=== PATIENT | male | born 1945 | race Caucasian/White ===

== ENCOUNTER 2016-07-18 15:34 | Inpatient (IN) | payer MEDICARE, OTHER ==
[~2016-07-18] VITALS: Ht 177.8 cm; Wt 77.3 kg
[~2016-07-18 15:34] MED LIST: AMIO200T PO; CAR8A PO; DULO30CA50 PO; DULO60CA42 PO; FINA5TAB9 PO; FURO40TA4 PO; METO-272 PO; OLAN5TAB PO; OXYC10TA8 PO; OXYC20TA55 PO; RIVA20TA PO; TRAZ-115 PO
[2016-07-18 15:43] VITALS: BP 105/67; PULSE 120; RESP 25; O2SAT 99
--- NOTE | 2016-07-18 16:02 | ED.REPORT ---
HPI-General Illness Date of Service Jul 18, 2016 ED Provider: Alireza Baron MD The patient is a 71 year old male with history of acute on chronic systolic heart failure, mitral regurgitation, atrial fibrillation with poor rate control on Xarelto, COPD, and hypertension, who was sent to the emergency department by his early childhood education coordinator, Dr. Parnell. The patient was sent to be admitted for decompensated heart failure. The patient was previously on 40 mg Lasix but his PCP took him off this medication about 1.5 weeks ago. He also has a prostate problem and has previously needed a urinary catheter. He removed the catheter about 1 week ago. At this time he complains of shortness of breath, urinary retention, and fluid build up. The shortness of breath has been worsening over the last few weeks. He has needed to sleep in a recliner and has not been able to complete his normal daily activities. His family members report that the patient has gained about 20 pounds in the last 2-3 weeks. Nursing Notes Stated Complaint: SHORTNESS OF BREATH Chief Complaint: General Complaint Nursing Notes Reviewed: Yes Allergies: Coded Allergies: pregabalin (Verified Allergy, Severe, "collapsed", 07/18/16) Scheduled Alfuzosin ER (Uroxatral) 10 Mg Tablet 10 MG PO HS Amitriptyline (Amitriptyline) 50 Mg Tab 50 MG PO HS Duloxetine (Cymbalta) 60 Mg Capsule.dr 60 MG PO HS TAKE WITH 30 MG DULOXETINE (=90 MG TOTAL) Duloxetine (Duloxetine) 30 Mg Capsule.dr 30 MG PO HS TAKE WITH 60 MG DULOXETINE (=90 MG TOTAL) Ipratropium/Albuterol Sulfate (Iprat-Albut 0.5-3(2.5) mg/3 mL Inhalant Soln) 3 Ml Ampul.neb 3 ML IH Q6H Metoprolol Succinate ER (Metoprolol Succinate ER) 50 Mg Tab.er.24h 50 MG PO HS Multivit with Calcium,Iron,Min (Therapeutic M) 1 Each Tablet 1 EACH PO HS Olanzapine (Olanzapine) 10 Mg Tablet 10 MG PO HS Oxycodone ER (Oxycontin) 20 Mg Tab.er.12h 20 MG PO BID Rivaroxaban (Xarelto) 20 Mg Tablet 20 MG PO HS Sennosides (Senna) 8.6 Mg Tablet 17.2 MG PO HS Tamsulosin (Flomax) 0.4 Mg Capsule 0.8 MG PO HS Trazodone (Trazodone) 50 Mg Tablet 150 MG PO HS USE 3 TABLETS OF THE 50 MG TABLETS (PT CANNOT SWALLOW LARGER PILL) Scheduled PRN Albuterol Neb Soln (Albuterol Neb Soln) 2.5 Mg/3 Ml Vial.neb 2.5 MG INHALATION Q4H PRN PRN For Shortness of Breath Docusate Sodium (Diocto) 50 Mg/5 Ml Liquid 50 MG PO HS PRN PRN For Constipation Oxycodone (Roxicodone) 5 Mg Tablet 5 MG PO TID PRN PRN For Pain General Time Seen by MD: 16:00 Chief Complaint Other (shortness of breath) Hx Obtained From: Patient, EMS Arrived By: Ambulance Sudden in Onset?: No Onset Occurred: More than a week ago... 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 Acute on chronic systolic heart failure. 2. Moderate mitral regurgitation. 3. Atrial fibrillation with poor rate control. 4. Chronic obstructive pulmonary disease. 5. Hypertension. 6. Tobacco use. Reports: Atrial fibrillation Past Surgical History None Family History Noncontributory Smoking History Current Every Day Smoker Social History Alcohol Use: Denies alcohol use Drug Use: Denies drug use Other Social History: Good social support, , Local resident Ambulatory Status Independent Review of Systems +urinary retention, weight gain Full Review of Systems Respiratory: Reports: Dyspnea on exertion, Shortness of breath Male: Reports Urinary urgency, Reports Urination decreased Musculoskeletal: Reports: Extremity swelling Complete sys rev & neg: except as marked. Physical Exam Vital Signs Vital Signs Date Time Temp Pulse Resp B/P Pulse Ox O2 Delivery O2 Flow Rate FiO2 07/18/16 15:43 36.5 120 25 105/67 99 Nasal Cannula 2 Initial VS: Reviewed Head / Eyes: Atraumatic, Normocephalic, PERRL ENT: Mucous membranes moist, Conjunctiva normal, No scleral icterus Neck: Supple, Non-tender, Full range of motion Lymphatic: No lymphadenopathy Extremities: Vascular intact, Neuro intact Skin: Warm, Dry, No cyanosis Neurologic: Alert, Oriented, Nonfocal Psychiatric: Mood/affect normal, Behavior normal, Normal thought content General/Constitutional: Awake, Alert, Cooperative Neck: No midline vertebral tend JVD elevated to about 6 cm with the head of the bed at 45 degrees. Respiratory / Chest: No respiratory distress Wheezing / Retractions: Positive: Prolonged exp phase, Wheezing mild (scattered ) Fine bibasilar crackles. Cardiovascular: Heart rate NL, Heart sounds NL, Peripheral circulation NL, Pulses = bilaterally Heart Rate / Rhythm: Positive: Irreg irregular rhythm Abdomen: Atraumatic, Soft, Non-tender, No guarding, No rebound, BS normoactive , No distention Lower Extremity / Pelvis / MS: Neurologic intact, Vascular intact 2+ lower extremity pitting edema extending up into the knees. Interpretation & Diagnostics Lab Results Interpretation Result Diagram: 07/18/16 1548 07/18/16 1548 Test 07/18/16 15:48 07/18/16 17:12 07/18/16 17:30 White Blood Count 4.1th/mm3 (3.8-10.1) Red Blood Count 3.89mil/mm3 (4.40-5.80) Hemoglobin 10.9g/dL (13.8-17.2) Hematocrit 35.1% (41.0-50.0) Mean Corpuscular Volume 90.2fL (81-100) Mean Corpuscular Hemoglobin 28.0pg (27.0-35.0) Mean Corpuscular Hemoglobin Concent 31.1% (32.0-37.0) Red Cell Distribution Width 14.1% (12.3-15.4) Platelet Count 158bil/L (150-400) Neutrophils (%) (Auto) 73.2% (40-74) Lymphocytes (%) (Auto) 14.9% (14-46) Monocytes (%) (Auto) 8.5% (4-12) Eosinophils (%) (Auto) 2.9% (0-5) Basophils (%) (Auto) 0.5% (0-3) Hold Purple Top Tube Received (Received) Prothrombin Time 13.4sec (8.1-12.5) Prothromb Time International Ratio 1.25ratio Hold Blue Top Tube Received (Received) Sodium Level 138mEq/L (134-144) Potassium Level 4.5mEq/L (3.5-5.2) Chloride Level 101mEq/L (97-108) Carbon Dioxide Level 26mmol/L (18-29) Blood Urea Nitrogen 16mg/dL (8-27) Creatinine 1.08mg/dL (0.76-1.27) Estimat Glomerular Filtration Rate 71mL/min (>59) Glucose Level 90mg/dL (60-99) Calcium Level 8.6mg/dL (8.5-10.1) Magnesium Level 2.1mg/dL (1.6-2.6) Total Bilirubin 0.3mg/dL (0.0-1.2) Aspartate Amino Transf (AST/SGOT) 14U/L (0-50) Alanine Aminotransferase (ALT/SGPT) 10U/L (0-44) Alkaline Phosphatase 83U/L (25-160) Troponin T < 0.010ug/L (0.0-0.011) Pro-B-Type Natriuretic Peptide 10652yj/mL (0-376) Total Protein 6.3g/dL (6.4-8.4) Albumin 3.4g/dL (3.4-5.0) Lipase 15U/L (13-60) Hold Red Top Tube Received (Received) Hold [place] Top Tube Received (Received) Lactic Acid Level 1.1mmol/L (0.4-2.0) Hold Urine Received (Received) ECG Interpretation ECG Interpretation: Atrial fibrillation with a rate of [address] elevation of approximately 1 mm in leads V2 and V3 T wave inversions in leads in leads V5 and V6 When compared to prior EKG taken on 04/20/2016 the patient now appears to be in atrial fibrillation when he was previously in ectopic atrial tachycardia. Time: 17:10 Interpreted by: ED physician X-Ray Chest Interpretation Chest Xray Interpretation: IMPRESSION: Mild pulmonary edema. Dictated by: Carlos Castillo RRA Interpreted: Cindy Hills MD on 07/18/2016 at 16:47 Interpretation / Wet Read by: Interpret - Radiologist Re-Eval/Medical Decision Med Decision/Clinical Course The patient is a 71 year old male with history of acute on chronic systolic heart failure, mitral regurgitation, atrial fibrillation with poor rate control on Xarelto, COPD, and hypertension, who was sent to the emergency department by his early childhood education coordinator, Dr. Parnell. Over the last couple weeks he has had a 20 pound weight gain, increasing shortness of breath and has been sleeping upright in his recliner ever since stopping his 40 mg daily Lasix dose. Of note, the patient has also had problems with urinary retention due to enlarged prostate and self discontinued his Michelle catheter recently and has been having difficulty voiding urine. Spoke to Dr. Parnell with cardiology who is requesting the patient be admitted for decompensated heart failure. He will consult. Labs: CBC no leukocytosis, hct 35.1, INR 1.25, CMP unremarkable, troponin negative, BNP 60021, good renal function. Chest x-ray demonstrate mild to moderate pulmonary edema. No evidence of focal pneumonia. Indwelling Michelle catheter was placed. Diuresis was initiated with 80 mg of IV Lasix. Patient remained stable and was continued on telemetry and pulse oximetry. Overall presentation was consistent with acute congestive heart failure exacerbation. I see no significant component of COPD exacerbation based upon my clinical assessment at this point. Overall presentation and convincing for acute pulmonary embolism. I feel the patient warrants admission for further ongoing diuresis and management of his volume status. Discussed with admitting hospitalist transferred in stable condition. Source of Hx: Old records, Private physician Time of Eval: 17:26 Re-Evaluation/Progress Note: Discussed plan for admission with family and the patient. They understand and agree with plan. All questions were addressed. Consultation #1: Referral / Consult Name: Joe Parnell MD Consulted With: Cardiology Call Returned at: 16:04 Note: Will consult. Consultation #2: Referral / Consult Name: Narendra Melchor MD Consulted With: Hospitalist Requested Call at: 17:27 Call Returned at: 18:08 Electronic Field Service Engineer: Will see patient, Agrees with eval, Agrees with plan, Accepts admit Counseled Regarding: Diagnosis, Lab results, Need for admission Discharge & Departure Primary Impression: Congestive heart failure Congestive heart failure type: systolic Congestive heart failure chronicity: acute Qualified Code: I50.21 - Acute systolic (congestive) heart failure Additional Impressions: Atrial fibrillation with rapid ventricular response Pulmonary edema Chronicity: acute Qualified Code: J81.0 - Acute pulmonary edema Shortness of breath Orthopnea Elevated brain natriuretic peptide (BNP) level Acute urinary retention Bladder outlet obstruction Disposition: ADMITTED TO HOSPITAL Discharge Condition All VS Reviewed: Yes Condition: Stable Referrals: Don Ly DO (PCP) Crit Care Except Billable Proc Time Spent: 105-134 minutes Services Performed: Patient management by me, Time spent at bedside, Reviewing test results, Reviewing imaging, Discussing patient care, Documentation in record, Time with fam/surrogate Scribe Attestation Portions of this note were transcribed by Diamond Whitney. I, Dr. Baron personally performed the history, physical exam and medical decision-making; I reviewed and confirmed the accuracy of the information in the transcribed note. Signed by: Santi Woo, 07/18/2016 at 1815. copies to: Don Ly Beck O MD Jul 18, 2016 16:02 Diamond Whitney Jul 18, 2016 16:05
[2016-07-18 16:10] LABS: BASOPHILS % (AUTO) 0.5 % (0-3); EOSINOPHILS % (AUTO) 2.9 % (0-5); MONOCYTES % (AUTO) 8.5 % (4-12); Mean Corpuscular Volume 90.2 fL (81-100); NEUTROPHILS % (AUTO) 73.2 % (40-74); Platelet Count 158 bil/L (150-400)
[2016-07-18 16:16] LABS: INR 1.25 ratio
[2016-07-18 16:26] LABS: TROPONIN T < 0.010 ug/L (0.0-0.011)
[2016-07-18 16:34] LABS: Lipase 15 U/L (13-60); Magnesium 2.1 mg/dL (1.6-2.6)
--- NOTE | 2016-07-18 16:47 | DRSVH ---
PROCEDURE: X-RAY CHEST ONE VIEW, PORTABLE ([id number]) INDICATIONS: chf TECHNIQUE: One view of the chest was acquired. COMPARISON: [facility], CR, XR CHEST 1VW (PORTABLE), 04/20/2016, 17:27. FINDINGS: Surgical changes and devices: None. Lungs and pleura: No pleural effusions or pneumothorax. Interstitium is prominent and mild edema is suspected. Mediastinum: Mediastinal contours appear normal. Heart size is enlarged. Bones and chest wall: No suspicious bony lesions. Overlying soft tissues appear unremarkable. IMPRESSION: Mild pulmonary edema. Dictated by: Carlos Castillo RR Interpreted: Cindy Hills MD on 07/18/2016 at 16:47 Transcribed by: СЕРГЕЙ on 07/18/2016 at 16:47 Approved by: Cindy Hills MD, PhD on 07/18/2016 at 16:49
[2016-07-18] MEDS ORDERED: TAMS0.4C98 PO (17:20)
[2016-07-18] MEDS ORDERED: OLAN10TA19 PO (17:20)
[2016-07-18] MEDS ORDERED: ALBU2.5V4 INHALATION (17:20)
[2016-07-18] MEDS ORDERED: OXYC-474 PO (17:20)
[2016-07-18] MEDS ORDERED: IPRA3AMP IH (17:20)
[2016-07-18] MEDS ORDERED: Furosemide 10 mg/mL 4 mL Inj IVPUSH SCH (17:20)
[2016-07-18] MEDS ORDERED: AMT50T PO (17:20)
[2016-07-18] MEDS ORDERED: ALFU10TA PO (17:26)
[2016-07-18] MEDS ORDERED: RIVA20TA PO (17:46)
[2016-07-18] MEDS ORDERED: MULT-140 PO (17:46)
[2016-07-18] MEDS ORDERED: SENN-133 PO (17:46)
[2016-07-18] MEDS ORDERED: DOCU50LI PO (17:46)
[2016-07-18] MEDS ORDERED: Furosemide 10 mg/mL 4 mL Inj IVPUSH ONE (18:10)
[2016-07-18] MEDS ORDERED: Alum-Mag Hydrox-Simeth 30 mL Suspension PO PRN (18:10)
[2016-07-18] MEDS ORDERED: Ondansetron 2 mg/mL 2 mL Inj IVPUSH PRN (18:10)
[2016-07-18 19:56] VITALS: BP 105/64; PULSE 136; RESP 14; O2SAT 98
[2016-07-18 20:12] VITALS: BP 101/68; PULSE 101; RESP 20; O2SAT 97
[2016-07-18 20:13] VITALS: PULSE 121
[2016-07-18] MEDS ORDERED: MeTOProlol XL 50 mg ER24 Tablet PO SCH (21:00)
--- NOTE | 2016-07-18 21:12 | PCM.HPMED ---
Subjective Date of Service Jul 18, 2016 Primary Provider: Admitting Physician: Narendra Melchor MD Primary Care Physician: Don Ly DO Attending Physician: Narendra Melchor MD Chief Complaint: Shortness of breath , weight gain, LE swelling. History of Present Illness: This is a 71 years old male with a myriad medical issues including refractory atrial fibrillation on Xarelto, chronic systolic heart failure, COPD , hypertension, who presented initially to his licensed loan officer assistant Dr. Parnell send him to [place] for admission. Patient was found to have decompensated heart failure , shortness of breath and uncontrolled heart rate . Patient has stopped taking his medication including his Lasix for near 2 weeks now. He had was as well his Michelle catheter. He is known to have BPH and is under preparation for elective prostatectomy. Patient stated he stopped taking his medication because he is tired of taking too much pills. He had gained approximately 20 pounds since and has been complaining of lower extremity swelling . He has been having worsening shortness of breath on minimal exertion as well. NO chest pain, no fever, no chills,no abdominal pain , no nausea, no vomiting Review of Systems: Review of systems is pertinent for shortness of breath as described in history of present illness otherwise comprehensive review x 10 points is negative Allergies Coded Allergies: pregabalin (Verified Allergy, Severe, "collapsed", 07/18/16) Home Medications Scheduled Alfuzosin ER (Uroxatral) 10 Mg Tablet 10 MG PO HS Amitriptyline (Amitriptyline) 50 Mg Tab 50 MG PO HS Duloxetine (Cymbalta) 60 Mg Capsule. 60 MG PO HS TAKE WITH 30 MG DULOXETINE (=90 MG TOTAL) Duloxetine (Duloxetine) 30 Mg Capsule. 30 MG PO HS TAKE WITH 60 MG DULOXETINE (=90 MG TOTAL) Ipratropium/Albuterol Sulfate (Iprat-Albut 0.5-3(2.5) mg/3 mL Inhalant Soln) 3 Ml Ampul.neb 3 ML IH Q6H Metoprolol Succinate ER (Metoprolol Succinate ER) 50 Mg Tab.er.24h 50 MG PO HS Multivit with Calcium,Iron,Min (Therapeutic M) 1 Each Tablet 1 EACH PO HS Olanzapine (Olanzapine) 10 Mg Tablet 10 MG PO HS Oxycodone ER (Oxycontin) 20 Mg Tab.er.12h 20 MG PO BID Rivaroxaban (Xarelto) 20 Mg Tablet 20 MG PO HS Sennosides (Senna) 8.6 Mg Tablet 17.2 MG PO HS Tamsulosin (Flomax) 0.4 Mg Capsule 0.8 MG PO HS Trazodone (Trazodone) 50 Mg Tablet 150 MG PO HS PMH 1. Acute on chronic systolic heart failure. 2. Moderate mitral regurgitation. 3. Atrial fibrillation with poor rate control. 4. Chronic obstructive pulmonary disease. 5. Hypertension. 6. Tobacco use. Reports: Atrial fibrillation Surgical History None reported Family History Reviewed and is non contributory to the present illness Social History Hx Alcohol Use: No Hx Substance Use: No Smoking Status: Former Smoker Living Arrangement: with Family Exam Vital Signs Vital Sign - Last Date Time Temp Pulse Resp B/P Pulse Ox O2 Delivery O2 Flow Rate FiO2 07/18/16 20:12 36.6 101 20 101/68 97 Nasal Cannula 2.00 Exam General/Constitutional: Elderly male in bed comfortably, no acute distress HEENT : Atraumatic, Normocephalic, PERRL, sclerae is anicteric Mouth: Moist oropharyngeal mucosa Neck: Supple, Non-tender, Full range of motion, no JVD, trachea is midline Lymphatic: No cervical lymphadenopathy. Spleen not palpable Chest : No chest wall deformity, normal respiratory effort Lungs: Bilateral crackles. No wheezing Heart: S1, S2 irregular rate, no gallop Abdomen : Benign. Bowel sounds normal all quadrants Extremities: 3+ edema b/l. No cyanosis, no calf tenderness Skin: Warm, Dry, No cyanosis, no rash, no ulcers Neurologic: Alert, Oriented, grossly Non focal Psychiatric: Mood/affect normal, Behavior normal, Normal thought content Lab and Diagnostics Result Diagram: 07/18/16 1548 07/18/16 1548 X-Rays, CTs and MRIs Check sex are reviewed and show pulmonary edema Assessment & Plan 1. Acute on chronic Systolic heart failure exacerbation 2. Bladder outlet obstruction 3 Pulmonary edema Chronic medical problems 1. Chronic systolic heart failure. 2. Moderate mitral regurgitation. 3. Atrial fibrillation on Xarelto 4. Chronic obstructive pulmonary disease. 5. Hypertension. 6. Tobacco use. Admit as inpatient. Telemetry monitoring Supplemental oxygen at 2 L via nasal cannula for adequate saturation Start furosemide 40 mg IV twice a day. Monitor renal for her electrolytes closely. Daily weight, fluid restriction. Obtain echocardiogram. Insert Michelle catheter for bladder outlet obstruction. Patient is known to have BPH and scheduled for surgery as outpatient. He removed his catheter voluntarily today Medication reviewed and reconciled ( See orders) . Continue Rivaroxaban Afib and stroke prevention. On metoprolol 50 mg twice a day for rete control. HR in the 110-120. BP is in the soft side. PT is SOB at the time of examination and that may be a contributing factor of her uncontrolled HR . Consider Cardizem drip if no improvement with diuretic and Metoprolol. Cardiology following ( Dr. Parnell) . Hospital stay of 2-3 day is anticipated, and recovery is expected Patient is DNR/DNI VTE Prophylaxis: Other (fully anticoagulated with Rivaroxaban ) Resuscitation Status: DNR/DNI:Do Not Resuscitate/Intubate Time spent 75 minutes Narendra Melchor MD Jul 18, 2016 21:12
[2016-07-18 22:14] VITALS: BP 100/70; PULSE 97; RESP 20; O2SAT 98
[2016-07-18] MEDS: DULoxetine 30 mg DR Capsule PO SCH (22:17)
[2016-07-19] VITALS (10 sets, daily range): BP systolic 101–113; BP diastolic 68–79; PULSE 66–118; RESP 18–22; O2SAT 92–99
--- NOTE | 2016-07-19 05:53 | NUR ---
Chest pain Pt having chest pain. Oxicodone administered. MD notified and ordered stat 12 lead EKG and Troponin. After 15 minutes pt reports of chest pain relieved by oxicodone. Denies SOB currently on 2LPM NC saturating 97%. Denies N/V or abdominal discomfort. Will continue to monitor.
[2016-07-19 07:24] LABS: BASOPHILS % (AUTO) 0.7 % (0-3); EOSINOPHILS % (AUTO) 3.3 % (0-5); MONOCYTES % (AUTO) 10.2 % (4-12); Mean Corpuscular Hemoglobin 28.2 pg (27.0-35.0); Mean Corpuscular Volume 88.9 fL (81-100); NEUTROPHILS % (AUTO) 63.7 % (40-74); Platelet Count 153 bil/L (150-400)
[2016-07-19] MEDS: Furosemide 10 mg/mL 4 mL Inj IVPUSH SCH ×2 (07:52→20:33)
[2016-07-19] MEDS: Albuterol 2.5 mg/3 mL Inhalation Solution NEB PRN ×2 (08:26→18:25)
--- NOTE | 2016-07-19 11:11 | DRSVH ---
[facility] [address] [place] [place] [address] Echocardiogram Report Name: KURT GALLO Date: 07/19/2016 Height: 70 in Hospital Exam Location: [facility] Weight: 184 lb Gender: Male BSA: 2.0 m2 : 1945 Age: 71 yrs BP: 107/78 mm Hg Reason For Study: Atrial fibrillation Ordering Physician: Performed By: Lilly Armenta Referring Physician: Dr. Billy Ly Interpretation Summary Underlying atrial fibrillation with rapid ventricular rate. 1. Mild left ventricular enlargement with severe systolic dysfunction. The estimatged ejection fraciton is less than 20%. Poor prognostic features such as less than 160ms deceleration time, elevated filling pressure and mitral regurgitation. 2. Severe left atrial enlargement. 3. Moderate to severe mitral regurgitation. Type I mitral rugurgitation ( Annular dilatation) 4. Mild to moderate tricuspid regurgitation. 5. Small pericardial effusion. Procedure: A two-dimensional transthoracic echocardiogram with color flow and Doppler was performed. The study quality was technically adequate. Comparison is made with the echocardiogram of 07/05/14. The patient was in atrial fibrillation with heart rates between 97-152 bpm during the exam. Left Ventricle: The left ventricle is mildly dilated. There is mild asymmetric left ventricular hypertrophy. The ejection fraction is estimated to be 10-15%. There is severe global hypokinesis of the left ventricle. Diastolic function could not be accurately assessed due to atrial fibrillation. Right Ventricle: The right ventricle is mildly dilated. Right ventricular systolic function is severely reduced. Atria: There is severe biatrial enlargement. The interatrial septum is intact with no evidence for an atrial septal defect. Mitral Valve: The mitral valve leaflets appear borderline thickened, but open well. There is moderate mitral regurgitation. Aortic Valve: The aortic valve is trileaflet. The aortic valve opens well. The aortic valve is slightly calcified. There is trace aortic regurgitation. Tricuspid Valve: There is mild to moderate tricuspid regurgitation. The right ventricular systolic pressure is estimated at 38 mmHg assuming a right atrial pressure of 15 mm Hg. Pulmonic Valve: The pulmonic valve is not well seen, but is grossly normal. There is trace pulmonic regurgitation. Great Vessels: The aortic root is mildly dilated. The aortic arch is normal in size. The ascending aorta is normal in size. The pulmonary artery is not well visualized, but is probably normal size. The IVC is dilated (diameter is greater than 2.1 cm) and it collapses less than 50% with a sniff. This suggests a high right atrial pressure of 15 mm Hg. Pericardium/ Pleura There is a trivial to small pericardial effusion noted. There is no pleural effusion. MMode/2D Measurements & Calculations LVIDd: 6.3 cm LA dimension: 4.9 cm RA long axis Ao root diam LVIDs: 5.6 cm FS: 11.0 % LA A2 area: 36.2 cm RA area Ao Arch Diam (Prox IVSd: 1.1 cm LA A4 area: 34.0 cm Trans): 3.0 cm LVPWd: 0.89 cm LA length (vol) : 28.9 cm RA vol LA vol: 162.4 ml : 112.ml LA vol index RA : 56.0 mm/ RVDd major IVC diam: 3.0 cm : 6.6 cm LV العلي. diameter/BSA LV sys. diameter/BSA RVD1 (basal) RVD2 (mid): 4.4 cm (cm/m^2): 3.1 (cm/m^2): 2.8 Doppler Measurements & Calculations Ao V2 max MV E max paul Med Peak E' Paul TR max paul : 84.4 cm/sec : 102.8 cm/sec : 239.5 cm/sec Ao max PG MV P1/2t: 26.3 msec E/E' med: 24.0 TR max PG : 2.8 mmHg Lat Peak E' Paul : 22.9 mmHg Ao mean PG PA V2 max : 1.5 mmHg E/E' lat: 15.4 : 51.1 cm/sec E/e' average: 19.7 PA mean PG : 0.43 mmHg PA Accel Time : 0.10 sec MV V2 mean MV P1/2t max paul Ao V2 mean PA V2 mean : 62.2 cm/sec : 57.0 cm/sec : 29.7 cm/sec MV mean PG MVA(P1/2t): 8.4 cm2 Ao V2 VTI: 13.8 cm MV V2 VTI : 10.8 cm Electronically signed by: Dr. Joe Parnell on Reading Physician:07/19/2016 11:10 AM
--- NOTE | 2016-07-19 12:02 | NUR ---
Social Work-initial assessment: Data:See initial assessment. Pt is a 71 y/o male who was admitted on 07/18/16 for CHF per H&P. Pt's insurance is [employer] and PCP is Don Ly DO. EMR reviewed. Pt's readmission score is 4-high risk. SW met with pt and Ember at bedside to discuss discharge planning, SW role explained. Pt is alert and oriented x3. Pt resides at home with his in [place] where he remains independent with ADls. Pt drives occasionally and does not use any DME. Pt has no HH or SNF history. Pt uses home O2 through [employer]. Pt has no jail care insurance or VA benefits. SW discussed DPOA/ advanced directive, pt and have completed this a long time ago, but are interested in new paperwork, which SW has provided. Per RN notes, pt has been up independent in his room. Pt and feel like they have enough help at home and decline HH at this time. Pt's to provide transport home at discharge. No anticipated discharge needs. SW will continue to follow if needs arise. Assessment:Pt who is independent at baseline. Plan:Pt to discharge home when medically stable via POV. No anticipated discharge needs. SW will continue to follow if needs arise. TOM Noland Addendum: 07/19/16 at 1216 by DASHAWN MUNOZ SS Amended: Links added.
[2016-07-19] MEDS: oxyCODONE ER 20 mg ER12 Tablet PO SCH ×2 (12:11→20:32)
--- NOTE | 2016-07-19 13:50 | CONS ---
[address] [address] CONSULTATION REPORT PATIENT: KURT GALLO : 1945 MR#: [id number] ADMIT: 07/18/2016 JOB ID: [id number] DATE OF SERVICE: 07/19/2016 CARDIOLOGY CONSULTATION: HISTORY OF PRESENT ILLNESS: The patient is a delightful 71-year-old gentleman who is very well known to my practice who has a history of chronic smoking, atrial fibrillation, moderate mitral regurgitation, LV dysfunction status post ablation for his atrial flutter unsuccessful. The patient has been seeing me in the office. Last visit was in March- March of 2016, to be precise April 25, 2016. The patient was in atrial fibrillation with rate well controlled at 76 beats per minute. Apparently patient has run out of his medications or has not been compliant with the medications. Meanwhile he is having difficulty urination. He was seen by Dr. Avendano as part of the workup for his benign prostate. He was referred to the emergency department for his symptoms of respiratory distress. The patient was having symptoms of shortness of breath, orthopnea, PND, leg swelling and symptoms of fatigue and tiredness. He just did not have much in his body. Therefore, he was referred to the emergency department by a digital forensics investigator at [facility]. The patient was evaluated. I received a phone call and spoke to Dr. Baron and advised him to be admitted to the hospital by the hospitalist service and will consult on him. I saw him again this morning. He reported some improvement in his overall well being. He is not having any significant orthopnea. He has lost about 6-7 pounds since admission and his swelling in the lower extremities is much improved. He is taking his medications. He was started on his routine home medications including metoprolol and rivaroxaban. The patient denied any fever, chills, any cough. He is having his repeat bronchodilators. Denies any GI or symptoms. Patient is catheterized. No neurological deficits reported as well. PAST MEDICAL HISTORY: Is significant for: 1. History of smoking. 2. Hypertension. 3. Moderate mitral regurgitation with myxomatous degeneration. 4. Systolic dysfunction with last reported ejection fraction of 35%. 5. History of ablation for atrial flutter. 6. Tachycardia induced cardiomyopathies. 7. History of thoracic aortic aneurysm. 8. History of smoking. HOME MEDICATIONS: Include: 1. Baby aspirin total 81 mg daily. 2. Xarelto 20 mg daily. 3. Metoprolol succinate 50 mg daily. 4. Trazodone 150 mg daily. 5. OxyContin 20 mg extended release for pain. 6. Olanzapine 10 mg daily. 7. Fluoxetine 60 mg capsule daily. 8. Amitriptyline 10 mg daily. PERSONAL HISTORY: The patient has quit smoking approximately three weeks ago. REVIEW OF SYMPTOMS: Is significant for shortness of breath, orthopnea, PND, history of recurrent wheezing, lower extremity edema, history of urinary retention and hesitation. PHYSICAL EXAMINATION: His blood pressure is 105/80. Pulse is 120, irregularly irregular. His JVD is distended to the earlobes. Respiratory system: The breath sounds are diminished in both lower bases. No active wheezing heard. S1-S2 is irregularly irregular. There is a soft systolic murmur. Abdomen is scaphoid. There is no swelling, no ascites noted. Lower extremities are warm. There is mild pedal edema noted bilaterally. Neurologically, he is grossly intact. He is alert and oriented, not in any distress. No sensory motor deficits noted. LABORATORIES: His labs are significant for hemoglobin of 10.9, hematocrit of 34.3, platelets of 153 and a white count of 14.2. Serum chemistries are significant for a ProBNP of approximately 24,000, BUN and creatinine of 18 and 1.01 and serial troponin levels unremarkable. A chest x-ray shows mild pulmonary edema. On my own review, there is a prominent ascending aorta. The pulmonary artery is mildly enlarged. Prominent Pulmonary shadow is consistent with pulmonary venous congestion. No pleural effusion noted. Echocardiogram performed this morning demonstrated ejection fraction of less than 20% with high-risk prognostic features noted including restrictive filling pattern, mitral regurgitation and elevated-high left atrial filling pressures. ASSESSMENT: 1. Acute decompensated congestive heart failure with features with elevated JVD, hypotension and EF of 20%. The findings are multifactorial which includes coronary artery disease, tachycardia induced cardiomyopathy, underlying atrial fibrillation with poor rate control. The patient had had a history of noncompliance and nonadherence to medications. He is admitted with fluid overload. Other contributing factor is patient has no obstructive prostatic enlargement which impeded the urinary output further worsening his heart failure symptoms. Unfortunately it was not adequately treated on timed. Therefore, he was admitted to the hospital last night with symptoms of shortness of breath, orthopnea, PND and lower extremity swelling and was catheterized. At this time, his blood pressure is 105 and his heart rate is 100-110 with activity heart rate rising up to 150 and adequately controlled. 2. Atrial fibrillation. The patient is on rate control, metoprolol succinate 50 mg daily and rivaroxaban. At this time I will stop the rivaroxaban and start him on Lovenox weight based management in preparation for a possible cardiac catheterization due to acute decompensated heart failure. 3. Chronic obstructive pulmonary disease. The patient has chronic obstructive pulmonary disease and is currently on bronchodilators. 4. History of thoracic aortic aneurysm, clinically stable. PLAN: 1. Fluid restriction 1.2 L. 2. Salt restricted diet. 3. Metoprolol succinate 75 mg daily. 4. Amiodarone 200 mg twice daily. 5. Coronary angiography to be scheduled for morning. 6. Request family conference to discuss overall prognosis and plan of care. 7. Continue with the IV diuretics, Lasix 40 mg twice daily. It can be increased to 40 mg three times daily. 8. Strict input output charting. Total time spent 60 minutes. MTDD
--- NOTE | 2016-07-19 17:18 | NUR ---
Activity/plan Pt up and amb in hallway this afternoon, tolerated well. Remained on 2L during activity, denied any SOB. Spoke with Dr. Parnell this morning re: plan and he had stated that he wanted pt on a low Na diet, a fluid restriction, NPO after MN with no caffeine for a plan to go to field laboratory operator tomorrow as well as PO amiodarone and would place the orders. Spoke with hospitalist with above who entered the above orders. Addendum: 07/19/16 at 1847 by TEE YADAV RN [employer] Dr. Parnell phoned this evening and stated pt would not be going to the field laboratory operator until so pt's NPO status/no caffeine restrictions lifted. would like to keep fluid restriction in place.
--- NOTE | 2016-07-19 20:29 | PCM.PNMED ---
Subjective Date of Service Jul 19, 2016 Subjective Patient is feeling a little bit better. He is still somewhat short of breath. He has no other new complaints. Exam Vital Signs Vital Sign - Last Date Time Temp Pulse Resp B/P Pulse Ox O2 Delivery O2 Flow Rate FiO2 07/19/16 19:55 37.2 66 20 113/76 99 Nasal Cannula 3.00 Intake and Output 07/18/16 07/18/16 07/19/16 Cumulative From/Thru 15:00 23:00 07:00 07/18/16 15:43 - 07/19/16 06:36 Intake Total 1154 ml 1154 ml Output Total 4300 ml 3200 ml 7500 ml Balance -4300 ml -2046 ml -6346 ml Intake Oral 1154 ml 1154 ml Output Urine Total 4300 ml 3200 ml 7500 ml # Bowel Movements 0 0 Exam General: Patient is in minimal distress. He is still very short of breath. He is sitting upright in bed. HEENT: Head is atraumatic and normocephalic. Eyes: Pupils are equally round and reactive to light and accommodation. Extraocular muscles are intact. Sclera are white, anicteric. Subconjunctival mucosa is pink. Ears and nose are unremarkable. Oropharynx: There is no mucosal lesions, there is no thrush, there is no pharyngitis. Neck: Is supple, there are no nodes, or masses or tenderness. Chest: Is clear to auscultation and percussion. There are no rales, rhonchi, wheezes or rubs. Heart: Rate is controlled, rhythm is irregular. Heart tones are distant. There is a grade 2/6 systolic ejection murmur heard best left sternal border. Is no appreciable rub or gallop. Abdomen: Good bowel sounds are present. Abdomen is soft, nontender, no organomegaly or masses were appreciated. Extremities: Are symmetrical and well perfused. There is 1+ edema of both lower extremities, there is no cellulitis, no rash. Neurologic: There are no focal neurological deficits. Cranial nerves II through XII are intact. There are no sensory or motor deficits. Psychiatric: Patients mood is calm and he shows no sign of agitation. Genital: Deferred Rectal: Deferred Lab and Diagnostics Result Diagram: 07/19/16 0640 07/19/16 0640 X-Rays, CTs and MRIs Check sex are reviewed and show pulmonary edema Cardiac Echo Impressions Echocardiogram Report Name: KURT GALLO Date: 0 07/19/2016 Height: 70 in Hospital Exam Location: [facility] Weight: 184 lb Gender: Male BSA: 2.0 m2 : 1945 Age: 71 yrs BP: 107/78 mm Hg Reason For Study: Atrial fibrillation Ordering Physician: Performed By: Lilly Armenta Referring Physician: Dr. Billy Ly Interpretation Summary Underlying atrial fibrillation with rapid ventricular rate. 1. Mild left ventricular enlargement with severe systolic dysfunction. The estimatged ejection fraciton is less than 20%. Poor prognostic features such as less than 160ms deceleration time, elevated filling pressure and mitral regurgitation. 2. Severe left atrial enlargement. 3. Moderate to severe mitral regurgitation. Type I mitral rugurgitation ( Annular dilatation) 4. Mild to moderate tricuspid regurgitation. 5. Small pericardial effusion. Assessment & Plan The patient is a 71 year old male with history of acute on chronic systolic heart failure, mitral regurgitation, atrial fibrillation with poor rate control on Xarelto, COPD, and hypertension, who was sent to the emergency department by his principal security architect, Dr. Parnell. The patient was sent to be admitted for decompensated heart failure. The patient was previously on 40 mg Lasix but his PCP took him off this medication about 1.5 weeks ago. He also has a prostate problem and has previously needed a urinary catheter. He removed the catheter about 1 week ago. At this time he complains of shortness of breath, urinary retention, and fluid build up. The shortness of breath has been worsening over the last few weeks. He has needed to sleep in a recliner and has not been able to complete his normal daily activities. His family members report that the patient has gained about 20 pounds in the last 2-3 weeks. She was admitted to the hospitalist service for further evaluation and treatment recommendations. # Acute on Chronic Systolic Congestive Heart Failure with pulmonary edema - The ejection fracture is only 20% - We will place on a fluid restriction - We will place on a heart healthy diet - Lasix 40 mg IV twice a day has been started - Continue metoprolol form of Toprol-XL 75 mg by mouth daily at bedtime, as ordered by cardiology. - Amiodarone started by cardiology. - Dr. Parnell was consulted for a cardiology consult and he is planning to take the patient for a cardiac catheterization tomorrow morning # Acute on chronic respiratory failure secondary to the above with exacerbation of COPD - To need treatment for congestive heart failure - Continue albuterol # Bladder outlet obstruction - Patient was on Flomax but stopped it on his own - Michelle catheter was placed due to outlet obstruction and for close monitoring of Is and Os - We will restart Flomax. Chronic medical problems 1. Chronic systolic heart failure, now with acute exacerbation. 2. Moderate mitral regurgitation. 3. Atrial fibrillation on Xarelto. Xarelto on hold for now 4. Chronic obstructive pulmonary disease with acute exacerbation secondary to congestive heart failure.. 5. Hypertension well controlled. 6. Tobacco use patient counseled on quitting smoking. Disposition: Patient likely to be her another 24-48 hours for evaluation and treatment of the above. Pain Evaluation: Adequate Pain Control (Xarelto) GI Prophylaxis: Not indicated VTE Prophylaxis: Other (fully anticoagulated with Rivaroxaban ) Resuscitation Status: DNR/DNI:Do Not Resuscitate/Intubate Shaji Vazquez MD Jul 19, 2016 20:29 Obtain echocardiogram. Insert Michelle catheter for bladder outlet obstruction. Patient is known to have BPH and scheduled for surgery as outpatient. He removed his catheter voluntarily today Medication reviewed and reconciled ( See orders) . Continue Rivaroxaban Afib and stroke prevention. On metoprolol 50 mg twice a day for rete control. HR in the 110-120. BP is in the soft side. PT is SOB at the time of examination and that may be a contributing factor of her uncontrolled HR . Consider Cardizem drip if no improvement with diuretic and Metoprolol. Cardiology following ( Dr. Parnell) . Hospital stay of 2-3 day is anticipated, and recovery is expected Patient is DNR/DNI VTE Prophylaxis: Other (fully anticoagulated with Rivaroxaban ) Resuscitation Status: DNR/DNI:Do Not Resuscitate/Intubate Shaji Vazquez MD Jul 19, 2016 20:29
[2016-07-19] MEDS: MeTOProlol XL 50 mg ER24 Tablet PO SCH (20:31)
[2016-07-19] MEDS: DULoxetine 30 mg DR Capsule PO SCH (20:32)
[2016-07-20] VITALS (13 sets, daily range): BP systolic 88–102; BP diastolic 62–69; PULSE 68–122; RESP 18–20; O2SAT 95–99
--- NOTE | 2016-07-20 05:51 | NUR ---
Uneventful Night Pt c/o back pain 11/07. Oxycodone 5mg givenx2 as needed. Pain improved and pt fallen asleep comfortably. Otherwise uneventful, pt denies chest pain/SOB/N/V/fever/chills, VSS, Recent BP 102/49. Tele: a-fib 90s. Course lung sounds,no crackles or wheezes. Trace edema at ankles. Void 810ml clear yellow urine via Michelle. On fluid restriction 1500ml/24hr, drink 250ml water over night.
[2016-07-20] MEDS: oxyCODONE ER 20 mg ER12 Tablet PO SCH ×2 (08:30→20:10)
[2016-07-20] MEDS: Furosemide 10 mg/mL 4 mL Inj IVPUSH SCH ×2 (09:12→20:30)
[2016-07-20 09:45] LABS: BASOPHILS % (AUTO) 0.5 % (0-3); EOSINOPHILS % (AUTO) 3.5 % (0-5); MONOCYTES % (AUTO) 11.2 % (4-12); Mean Corpuscular Hemoglobin 27.7 pg (27.0-35.0); Mean Corpuscular Volume 88.6 fL (81-100); NEUTROPHILS % (AUTO) 65.1 % (40-74); Platelet Count 162 bil/L (150-400)
[2016-07-20 10:02] LABS: Phosphorus 4.6 mg/dL (2.5-4.9)
[2016-07-20] MEDS: Albuterol 2.5 mg/3 mL Inhalation Solution NEB PRN (10:28)
--- NOTE | 2016-07-20 12:57 | PROG NOTE ---
[address] [address] PROGRESS NOTE PATIENT: KURT GALLO : 1945 MR#: [id number] ADMIT: 07/18/2016 JOB ID: [id number] DATE: 07/20/2016 SUBJECTIVE: This is hospital day three for the patient, who was admitted for acute on chronic congestive heart failure, atrial fibrillation, and chronic obstructive pulmonary disease. OBJECTIVE: The patient is resting comfortably in bed, breathing well. He took a lap around the hospital floor and was not short of breath after doing so. Blood pressure is 93/63, respirations 18, heart rate 99. The patient is in atrial fibrillation SpO2 is 99% on nasal cannula with 3 L of oxygen. Auscultation of the lungs revealed that the lungs were clear in all martins. Auscultation of the heart revealed normal S1 and S2, without murmurs, clicks, or rubs. Abdomen is soft and nontender. There was no peripheral edema. His intake was 250 mL, output was 3100 mL, was which is a balance of -2850 mL. His weight is 79.8 kg, which is compared to his initial weight of 89 kg. LABORATORY: White blood count is 3.8, red blood count is 4.04, hemoglobin is 11.2, hematocrit 35.8, platelet count is 162. Sodium 141, potassium 3.8, chloride 97, carbon dioxide 36, BUN 18, creatinine 1.14, calcium 8.4, magnesium 2.0. AST 12, ALT 8, alk phos is 83, albumin is 3.3. ASSESSMENT AND PLAN: 1. Acute decompensated congestive heart failure with features of elevated jugular venous distension, hypotension, and ejection fraction of 20%. At this point the patient is resting comfortably, breathing normal. Lungs are clear. Edema has resolved. His weight is down 20 pounds. Blood pressure is a little soft at 93 systolic. As such, Dr. Parnell recommends that we lower his Flomax to 0.4 mg daily. We will continue to keep him on the same regimen of diuretics and beta-blockers at this time. 2. Atrial fibrillation. The patient is on rate control, metoprolol succinate 50 mg daily, and rivaroxaban for anticoagulation. We will stop the rivaroxaban and start him on Lovenox weight-based management in preparation for possible cardiac heart catheterization, which will be done barring any unforeseen concerns tomorrow. 3. Chronic obstructive pulmonary disease. The patient has chronic obstructive pulmonary disease and is currently on bronchodilators.
[2016-07-20] MEDS: Albuterol-Ipratropium 3 mL Inhalation Solution NEB SCH ×2 (14:34→20:54)
[2016-07-20] MEDS: DULoxetine 30 mg DR Capsule PO SCH (20:11)
[2016-07-20] MEDS: MeTOProlol XL 50 mg ER24 Tablet PO SCH ×2 (20:33→22:38)
--- NOTE | 2016-07-20 21:58 | PCM.PNMED ---
Subjective Date of Service Jul 20, 2016 Subjective Patient is beginning to feel a bit better. He can breathe better. He really wanted a cup coffee today but was told he could not have one. He has no other new complaints. Exam Vital Signs Vital Sign - Last Date Time Temp Pulse Resp B/P Pulse Ox O2 Delivery O2 Flow Rate FiO2 07/20/16 20:55 92 18 98 Nasal Cannula 3.00 07/20/16 20:24 37.0 97/69 Intake and Output 07/19/16 07/19/16 07/20/16 Cumulative From/Thru 15:00 23:00 07:00 07/18/16 15:43 - 07/20/16 06:47 Intake Total 672 ml 250 ml 2076 ml Output Total 2900 ml 3100 ml 88638 ml Balance -2228 ml -2850 ml -99298 ml Intake Oral 672 ml 250 ml 2076 ml Output Urine Total 2900 ml 3100 ml 43429 ml # Bowel Movements 0 0 Exam General: Patient is more comfortable today sitting up in bed HEENT: Head is atraumatic and normocephalic. Eyes: Pupils are equally round and reactive to light and accommodation. Extraocular muscles are intact. Sclera are white, anicteric. Subconjunctival mucosa is pink. Ears and nose are unremarkable. Oropharynx: There is no mucosal lesions, there is no thrush, there is no pharyngitis. Neck: Is supple, there are no nodes, or masses or tenderness. Chest: Is clear to auscultation and percussion. There are no rales, rhonchi, wheezes or rubs. Heart: Rate is controlled, rhythm is irregular. Heart tones are distant. There is a grade 2/6 systolic ejection murmur heard best left sternal border. Is no appreciable rub or gallop. Abdomen: Good bowel sounds are present. Abdomen is soft, nontender, no organomegaly or masses were appreciated. Extremities: Are symmetrical and well perfused. There is decreased edema of both lower extremities, there is no cellulitis, no rash. Neurologic: There are no focal neurological deficits. Cranial nerves II through XII are intact. There are no sensory or motor deficits. Psychiatric: Patients mood is calm and he shows no sign of agitation. Genital: Deferred Rectal: Deferred Lab and Diagnostics Result Diagram: 07/20/16 0934 07/20/16 0934 X-Rays, CTs and MRIs Check sex are reviewed and show pulmonary edema Cardiac Echo Impressions Echocardiogram Report Name: KURT GALLO Date: 07/19/2016 Height: 70 in Hospital Exam Location: [facility] Weight: 184 lb Gender: Male BSA: 2.0 m2 : 1945 Age: 71 yrs BP: 107/78 mm Hg Reason For Study: Atrial fibrillation Ordering Physician: Performed By: Lilly Armenta Referring Physician: Dr. Billy Ly Interpretation Summary Underlying atrial fibrillation with rapid ventricular rate. 1. Mild left ventricular enlargement with severe systolic dysfunction. The estimatged ejection fraciton is less than 20%. Poor prognostic features such as less than 160ms deceleration time, elevated filling pressure and mitral regurgitation. 2. Severe left atrial enlargement. 3. Moderate to severe mitral regurgitation. Type I mitral rugurgitation ( Annular dilatation) 4. Mild to moderate tricuspid regurgitation. 5. Small pericardial effusion. Assessment & Plan The patient is a 71 year old male with history of acute on chronic systolic heart failure, mitral regurgitation, atrial fibrillation with poor rate control on Xarelto, COPD, and hypertension, who was sent to the emergency department by his gas turbine powerplant mechanic helper, Dr. Parnell. The patient was sent to be admitted for decompensated heart failure. The patient was previously on 40 mg Lasix but his PCP took him off this medication about 1.5 weeks ago. He also has a prostate problem and has previously needed a urinary catheter. He removed the catheter about 1 week ago. At this time he complains of shortness of breath, urinary retention, and fluid build up. The shortness of breath has been worsening over the last few weeks. He has needed to sleep in a recliner and has not been able to complete his normal daily activities. His family members report that the patient has gained about 20 pounds in the last 2-3 weeks. She was admitted to the hospitalist service for further evaluation and treatment recommendations. # Acute on Chronic Systolic Congestive Heart Failure with pulmonary edema - The ejection fracture is only 20% - We have placed on a fluid restriction - We will place on a heart healthy diet - Lasix 40 mg IV twice a day has been started - Continue metoprolol form of Toprol-XL 75 mg by mouth daily at bedtime, as ordered by cardiology. - Amiodarone started by cardiology and will continue. - Dr. Parnell was consulted for a cardiology consult and he is planning to take the patient for a cardiac catheterization tomorrow morning - We will likely get repeat chest x-ray to ensure the pulmonary edema has improved. - Check BNP in a.m. # Acute on chronic respiratory failure secondary to the above with exacerbation of COPD - To need treatment for congestive heart failure - Continue albuterol # Bladder outlet obstruction - Patient was on Flomax but stopped it on his own. Flomax was restarted. - Michelle catheter was placed due to outlet obstruction and for close monitoring of Is and Os - Due to low blood pressure Flomax dose was decreased to 0.4 mg by mouth daily at bedtime today cardiology.. Chronic medical problems 1. Chronic systolic heart failure, now with acute exacerbation. 2. Moderate mitral regurgitation. 3. Atrial fibrillation on Xarelto. Xarelto on hold for now 4. Chronic obstructive pulmonary disease with acute exacerbation secondary to congestive heart failure.. 5. Hypertension well controlled. 6. Tobacco use patient counseled on quitting smoking. Disposition: Patient likely to be her another 24-48 hours for evaluation and treatment of the above. Pain Evaluation: Adequate Pain Control GI Prophylaxis: Not indicated VTE Prophylaxis: Other (fully anticoagulated with Rivaroxaban ) VTE Mechanical Devices: Intermittant Pneumatic CD Resuscitation Status: DNR/DNI:Do Not Resuscitate/Intubate Shaji Vazquez MD Jul 20, 2016 21:58
[2016-07-20] MEDS: Polyethylene Glycol (PEG) 17 Gm Powder PO SCH (22:00)
[2016-07-21] VITALS (21 sets, daily range): BP systolic 83–102; BP diastolic 47–70; PULSE 81–115; RESP 14–20; O2SAT 91–97
[2016-07-21] MEDS: Albuterol-Ipratropium 3 mL Inhalation Solution NEB SCH ×4 (02:09→19:56)
--- NOTE | 2016-07-21 04:44 | NUR ---
A-fib RVR Tele: A-fib RVR 100s-140s, asymptomatic,denies chest pain/chest pressure/SOB/palpitation. BP 96/67 at evening, Dr. Andersen contacted multiple times at [id number],2230,[id number], 0305. Amiodarone and Metoprolol 75mg given at late pm after contacted Dr. Ganesh MD unable to give additional order due to low BP (recent BP 88/60), pt is kept bedrest,semi abdi position,continue O2 3l per nc, CHAMBER WORKER monitoring. Pt sleeping comfortably, current HR 90s-100s.
--- NOTE | 2016-07-21 06:28 | NUR ---
Michelle Michelle placed at ER (07/18/2016?) due to urinary obstruction per pt, report will be given to day shift RN and pink communication sheet filled out to remind day hospitalist to reassess the need of Michelle.
[2016-07-21 07:14] LABS: BASOPHILS % (AUTO) 0.7 % (0-3); EOSINOPHILS % (AUTO) 4.5 % (0-5); MONOCYTES % (AUTO) 9.5 % (4-12); Mean Corpuscular Hemoglobin 27.4 pg (27.0-35.0); Mean Corpuscular Volume 87.9 fL (81-100); Platelet Count 164 bil/L (150-400)
[2016-07-21 07:33] LABS: Magnesium 2.2 mg/dL (1.6-2.6)
--- NOTE | 2016-07-21 08:05 | NUR ---
Pt off floor for Heart Cath. 22g IV placed in L forearm per request of surgery.
[2016-07-21] MEDS ORDERED: fentaNYL-PF 50 mCg/mL 2 mL Inj ONE (08:18)
[2016-07-21] MEDS ORDERED: 0.9% Sodium Chloride 500 ML ONE ×2 (08:20→08:23)
[2016-07-21] MEDS ORDERED: Heparin 5,000 Units/500 mL NS Premix IV ONE (08:23)
[2016-07-21] MEDS ORDERED: Heparin 1,000 Unit/mL 10 mL Inj ONE ×2 (08:24→08:30)
[2016-07-21] MEDS ORDERED: 0.9% Sodium Chloride 1,000 ML ONE ×2 (08:26→08:30)
[2016-07-21] MEDS ORDERED: 0.9% Sodium Chloride 1,000 ML IV PRN (08:43)
[2016-07-21] MEDS ORDERED: 0.9% Sodium Chloride 250 ML IV PRN (08:43)
[2016-07-21] MEDS ORDERED: Atropine 1 mg/10 mL (Code) Syringe IVPUSH PRN (08:45)
[2016-07-21] MEDS ORDERED: Ondansetron 2 mg/mL 2 mL Inj IVPUSH PRN ×2 (08:45→10:50)
[2016-07-21] MEDS ORDERED: 0.9% Sodium Chloride 1,000 ML IV ONE (10:47)
[2016-07-21] MEDS ORDERED: HYDROcodone-APAP 5-325 mg Tablet PO PRN (10:50)
--- NOTE | 2016-07-21 12:10 | NUR ---
Pt off floor to XRAY via WC.
[2016-07-21] MEDS: oxyCODONE ER 20 mg ER12 Tablet PO SCH ×2 (13:57→20:59)
[2016-07-21] MEDS: Furosemide 10 mg/mL 4 mL Inj IVPUSH SCH ×2 (13:57→20:09)
[2016-07-21] MEDS: Polyethylene Glycol (PEG) 17 Gm Powder PO SCH (13:57)
--- NOTE | 2016-07-21 14:39 | DRSVH ---
PROCEDURE: X-RAY CHEST, TWO VIEWS ([id number]) INDICATIONS: Follow up for Pulmonary edema TECHNIQUE: 2 views of the chest were acquired. COMPARISON: [facility], CR, XR CHEST 1VW (PORTABLE), 07/18/2016, 16:02. [facility], CR, XR CHEST 2VW, 07/01/2016, 10:18. FINDINGS: Surgical changes and devices: None. Lungs and pleura: No pleural effusions or pneumothorax. Interstitium is prominent and mild edema is suspected. Mediastinum: Mediastinal contours appear normal. Heart size is enlarged. Bones and chest wall: No suspicious bony lesions. Overlying soft tissues appear unremarkable. IMPRESSION: Mild edema appears unchanged. Dictated by: Carlos Castillo RRA Interpreted: iCndy Hills MD on 07/21/2016 at 14:38 Transcribed by: СЕРГЕЙ on 07/21/2016 at 14:39 Approved by: Cindy Hills MD, PhD on 07/21/2016 at 16:55
[2016-07-21] MEDS: Sodium Chloride LOK Flush 10 mL Syringe IVFLUSH SCH (16:30)
--- NOTE | 2016-07-21 19:00 | NUR ---
medications: Hospitalist notified about scheduled medications/BP low. held Lasix, metoprolol, and Ok to give PO amiodarone. pt npo at midnight for cardioversion in am. cpox in place sats mid to low 90's. RA to 2Lo2. will continue to monitor.
--- NOTE | 2016-07-21 19:22 | NUR ---
SOB episode/O2 Needs Pt on 3L NC satting in mid to low 90's most of the day. No c/o of SOB for most of shift. During rounding, pt reported he was feeling SOB. O2 increased to 4L for a period and elevated HOB, SpO2 at 92%. SOB soon resolved. Pt O2 titrated to RA at times, SpO2 in mid 90's. Goal per MD communication is 92%. CPOX in place and pt instructed to report any episodes of SOB.
--- NOTE | 2016-07-21 19:26 | NUR ---
PLAN FOR CARDIOVERSION Called by cardioversion lab, reported that cardioversion will be preformed at 1330 on 07/22. Pt needs to be at [facility] at 1315. Pt can have Amiodarone for morning med. NPO status at 0600, possible to have a snack at 0500. DR Vazquez told of DR Parnell's plan. No orders in chart. Asked NOC shift to follow up and verify orders.
[2016-07-21] MEDS: MeTOProlol XL 50 mg ER24 Tablet PO SCH (20:09)
[2016-07-21] MEDS: DULoxetine 30 mg DR Capsule PO SCH (20:59)
--- NOTE | 2016-07-21 21:13 | CS94 ---
[address] [address] DIAGNOSTIC CARDIAC CATHETERIZATION PATIENT: KURT GALLO : 1945 MR#: [id number] ADMIT: 07/18/2016 JOB ID: [id number] SERVICE DATE: 07/21/2016 INDICATION: 1. Acute decompensated heart failure. 2. History of chronic atrial fibrillation status post ablation. 3. History of smoking. 4. History of chronic lung disease. CLINICAL HISTORY: Patient was admitted to the hospital with acute decompensated heart failure, hypotension, atrial fibrillation with rapid ventricular rate. The patient had a bladder neck obstruction for which Michelle catheterization was performed, and fluid overload was addressed using IV Lasix. Patient is clinically better. Coronary angiography is performed to assess underlying coronary artery disease. CONSENT: The patient was explained the risks, benefits, and alternatives of the procedure. Informed signed consent was obtained and placed in the chart. ALLERGIES: Patient is allergic to PREGABALIN. PROCEDURES: 1. Left heart catheterization. 2. Selective left and right coronary angiography. 3. Left ventricular hemodynamics. 4. Right groin angiography. DESCRIPTION OF PROCEDURE: The patient was brought to the cath laboratory and placed on the cath table. Procedural sedation was administered by the nurse. Please refer to the event log. Lidocaine 1% was infiltrated in the right groin area after sterile preparation and draping was performed. Using a modified Seldinger technique, a 25 cm long sheath was placed in the right femoral artery without any difficulty. FR-4 catheter was used to engage the left main coronary artery and multiple views of the left coronary artery were obtained in multiple projections. The AL-1 catheter was used to engage the right coronary artery, and coronary angiography of the right coronary artery was performed. Using a guide wire, a pigtail catheter was advanced and placed in the left ventricle. Left ventricular hemodynamics was obtained. Subsequently, a pullback maneuver was performed to assess for any gradient. COMPLICATIONS: None. TOTAL FLUOROSCOPY TIME: 1.7 minutes. TOTAL CONTRAST USED: 60 cc. HEMODYNAMICS: The left ventricular pressure was 95/2 with an LVEDP of 17. CORONARY ANGIOGRAPHY: The left main coronary artery is a moderate-sized vessel, which bifurcates into left anterior descending artery and left circumflex coronary artery. The LAD demonstrates no significant disease. The left circumflex demonstrates no significant disease except for luminal irregularities noted. The right coronary artery has a high take off. Minimal luminal irregularities are noted in the right coronary artery. It is free of any significant disease. IMPRESSION: 1. Very mild three-vessel coronary artery disease. 2. Mildly elevated left ventricular end-diastolic pressure.
--- NOTE | 2016-07-21 23:51 | PCM.PNMED ---
Subjective Date of Service Jul 21, 2016 Subjective Patient complains of some lightheadedness. Otherwise he is feeling better overall. No other new complaints. Exam Vital Signs Vital Sign - Last Date Time Temp Pulse Resp B/P Pulse Ox O2 Delivery O2 Flow Rate FiO2 07/21/16 21:53 Supplement Oxygen 07/21/16 21:25 110 07/21/16 19:56 20 94 2.00 07/21/16 19:43 36.3 91/61 Intake and Output 07/20/16 07/20/16 07/21/16 Cumulative From/Thru 15:00 23:00 07:00 07/18/16 15:43 - 07/20/16 18:22 Intake Total 1376 ml 3452 ml Output Total 2600 ml 79280 ml Balance -1224 ml -87986 ml Intake Oral 1376 ml 3452 ml Output Urine Total 2600 ml 10305 ml # Bowel Movements 0 0 Exam General: Patient is more comfortable today and is able to lay much flatter in bed. HEENT: Head is atraumatic and normocephalic. Eyes: Pupils are equally round and reactive to light and accommodation. Extraocular muscles are intact. Sclera are white, anicteric. Subconjunctival mucosa is pink. Ears and nose are unremarkable. Oropharynx: There is no mucosal lesions, there is no thrush, there is no pharyngitis. Neck: Is supple, there are no nodes, or masses or tenderness. Chest: Is clearer to auscultation and percussion. There are no significant rales, rhonchi, wheezes or rubs. Heart: Rate is controlled, rhythm is irregular. Heart tones are distant. There is a grade 2/6 systolic ejection murmur heard best left sternal border. Is no appreciable rub or gallop. Abdomen: Good bowel sounds are present. Abdomen is soft, nontender, no organomegaly or masses were appreciated. Extremities: Are symmetrical and well perfused. There is decreased edema of both lower extremities, there is no cellulitis, no rash. Neurologic: There are no focal neurological deficits. Cranial nerves II through XII are intact. There are no sensory or motor deficits. Psychiatric: Patients mood is calm and he shows no sign of agitation. Genital: Deferred Rectal: Deferred Lab and Diagnostics Result Diagram: 07/21/16 0610 07/21/16 0610 X-Rays, CTs and MRIs PROCEDURE: X-RAY CHEST, TWO VIEWS ([id number]) INDICATIONS: Follow up for Pulmonary edema TECHNIQUE: 2 views of the chest were acquired. COMPARISON: [facility], CR, XR CHEST 1VW (PORTABLE), 07/18/2016, 16: 02. [facility], CR, XR CHEST 2VW, 07/01/2016, 10:18. FINDINGS: Surgical changes and devices: None. Lungs and pleura: No pleural effusions or pneumothorax. Interstitium is prominent and mild edema is suspected. Mediastinum: Mediastinal contours appear normal. Heart size is enlarged. Bones and chest wall: No suspicious bony lesions. Overlying soft tissues appear unremarkable. IMPRESSION: Mild edema appears unchanged. Dictated by: Carlos Castillo RRA Interpreted: Cindy Hills MD on 07/21/2016 at 14:38 Transcribed by: СЕРГЕЙ on 07/21/2016 at 14:39 Approved by: Cindy Hills MD, PhD on 07/21/2016 at 16:55 Cardiac Echo Impressions Echocardiogram Report Name: KURT GALLO Date: 0 07/19/2016 Height: 70 in Hospital Exam Location: [facility] Weight: 184 lb Gender: Male BSA: 2.0 m2 : 1945 Age: 71 yrs BP: 107/78 mm Hg Reason For Study: Atrial fibrillation Ordering Physician: Performed By: Lilly Armenta Referring Physician: Dr. Billy Ly Interpretation Summary Underlying atrial fibrillation with rapid ventricular rate. 1. Mild left ventricular enlargement with severe systolic dysfunction. The estimatged ejection fraciton is less than 20%. Poor prognostic features such as less than 160ms deceleration time, elevated filling pressure and mitral regurgitation. 2. Severe left atrial enlargement. 3. Moderate to severe mitral regurgitation. Type I mitral rugurgitation ( Annular dilatation) 4. Mild to moderate tricuspid regurgitation. 5. Small pericardial effusion. Additional Diagnostics Coronary artery catheterization performed today showed: "IMPRESSION: 1. Very mild three-vessel coronary artery disease. 2. Mildly elevated left ventricular end-diastolic pressure." Assessment & Plan The patient is a 71 year old male with history of acute on chronic systolic heart failure, mitral regurgitation, atrial fibrillation with poor rate control on Xarelto, COPD, and hypertension, who was sent to the emergency department by his lead sharepoint developer, Dr. Parnell. The patient was sent to be admitted for decompensated heart failure. The patient was previously on 40 mg Lasix but his PCP took him off this medication about 1.5 weeks ago. He also has a prostate problem and has previously needed a urinary catheter. He removed the catheter about 1 week ago. At this time he complains of shortness of breath, urinary retention, and fluid build up. The shortness of breath has been worsening over the last few weeks. He has needed to sleep in a recliner and has not been able to complete his normal daily activities. His family members report that the patient has gained about 20 pounds in the last 2-3 weeks. She was admitted to the hospitalist service for further evaluation and treatment recommendations. # Acute on Chronic Systolic Congestive Heart Failure with pulmonary edema - The ejection fracture is only 20% - We have placed on a fluid restriction - We will place on a heart healthy diet - Lasix 40 mg IV twice a day has been started - Continue metoprolol form of Toprol-XL 75 mg by mouth daily at bedtime, as ordered by cardiology. - Amiodarone started by cardiology and will continue. - Dr. Parnell was consulted for a cardiology consult and he is planning to take the patient for a cardiac catheterization tomorrow morning - We will likely get repeat chest x-ray to ensure the pulmonary edema has improved. - Check BNP in a.m. # Acute on chronic respiratory failure secondary to the above with exacerbation of COPD - To need treatment for congestive heart failure - Continue albuterol # Bladder outlet obstruction - Patient was on Flomax but stopped it on his own. Flomax was restarted. - Michelle catheter was placed due to outlet obstruction and for close monitoring of Is and Os - Due to low blood pressure Flomax dose was decreased to 0.4 mg by mouth daily at bedtime today cardiology.. Chronic medical problems 1. Chronic systolic heart failure, now with acute exacerbation. 2. Moderate mitral regurgitation. 3. Atrial fibrillation on Xarelto. Xarelto on hold for now 4. Chronic obstructive pulmonary disease with acute exacerbation secondary to congestive heart failure.. 5. Hypertension well controlled. 6. Tobacco use patient counseled on quitting smoking. Disposition: Patient likely to be her another 24-48 hours for evaluation and treatment of the above. Pain Evaluation: Adequate Pain Control GI Prophylaxis: Not indicated VTE Prophylaxis: Other (fully anticoagulated with Rivaroxaban ) VTE Mechanical Devices: Intermittant Pneumatic CD Resuscitation Status: DNR/DNI:Do Not Resuscitate/Intubate Shaji Vazquez MD Jul 21, 2016 23:51
[2016-07-22] VITALS (19 sets, daily range): BP systolic 75–100; BP diastolic 50–81; PULSE 84–115; RESP 12–20; O2SAT 92–98
[2016-07-22] MEDS: Sodium Chloride LOK Flush 10 mL Syringe IVFLUSH SCH ×4 (00:30→23:17)
[2016-07-22] MEDS: Albuterol-Ipratropium 3 mL Inhalation Solution NEB SCH ×4 (04:33→21:00)
[2016-07-22] MEDS ORDERED: Lactated Ringer's 1,000 ML IV SCH ×2 (05:00)
[2016-07-22] MEDS ORDERED: Benzoc-Butamben-Tetraca Spray 20 Gm Spray TOPICAL ONE (06:00)
[2016-07-22 06:50] LABS: BASOPHILS % (AUTO) 1.1 % (0-3); EOSINOPHILS % (AUTO) 4.6 % (0-5); MONOCYTES % (AUTO) 9.9 % (4-12); Mean Corpuscular Hemoglobin 27.4 pg (27.0-35.0); Mean Corpuscular Volume 87.3 fL (81-100); NEUTROPHILS % (AUTO) 55.9 % (40-74); Platelet Count 158 bil/L (150-400)
[2016-07-22 07:26] LABS: Magnesium 2.1 mg/dL (1.6-2.6)
[2016-07-22] MEDS: Polyethylene Glycol (PEG) 17 Gm Powder PO SCH (08:29)
[2016-07-22] MEDS: Furosemide 10 mg/mL 4 mL Inj IVPUSH SCH ×2 (08:40→19:25)
[2016-07-22] MEDS: oxyCODONE ER 20 mg ER12 Tablet PO SCH ×2 (08:40→19:30)
[2016-07-22] MEDS ORDERED: Amiodarone 150 mg/100 mL D5W 150 MG in IV Premix 1 EACH IV ONE (08:45)
--- NOTE | 2016-07-22 09:30 | NUR ---
Social Work: Continued Discharge Planning D: Pt discussed with cupola charger. [place] [facility] [place] EMR reviewed, pt lives at home with his in [place]. He is I at baseline. CABLE RESPOOLER met with pt at bedside to confirm this information. Pt still intends to return home when medically stable with his to transport. Pt has been I during admission. CABLE RESPOOLER provided pt with [facility] CABLE RESPOOLER contact information. A: Pt who is I at baseline. P: Anticipate pt to discharge home via POV once medically stable; CABLE RESPOOLER to continue to follow TOM Arce
--- NOTE | 2016-07-22 10:02 | PCM.PNMED ---
Subjective Date of Service Jul 22, 2016 Subjective - Pt seen and examined this morning. AAO x3 - c/o mild lightheadedness. Denies any chest pain. Exam Vital Signs Vital Sign - Last Date Time Temp Pulse Resp B/P Pulse Ox O2 Delivery O2 Flow Rate FiO2 07/22/16 09:36 36.2 114 16 100/64 95 Nasal Cannula 1.50 Intake and Output 07/21/16 07/21/16 07/22/16 Cumulative From/Thru 15:00 23:00 07:00 07/18/16 15:43 - 07/22/16 05:15 Intake Total 955 ml 997 ml 5404 ml Output Total 1400 ml 2500 ml 32085 ml Balance -445 ml -1503 ml -25627 ml Intake Oral 455 ml 954 ml 4861 ml IV Total 500 ml 43 ml 543 ml Output Urine Total 1400 ml 2500 ml 95533 ml # Bowel Movements 0 0 Exam General: Patient is more comfortable today and is able to lay much flatter in bed. HEENT: Head is atraumatic and normocephalic. Eyes: Pupils are equally round and reactive to light and accommodation. Extraocular muscles are intact. Sclera are white, anicteric. Subconjunctival mucosa is pink. Ears and nose are unremarkable. Oropharynx: There is no mucosal lesions, there is no thrush, there is no pharyngitis. Neck: Is supple, there are no nodes, or masses or tenderness. Chest: Is clearer to auscultation and percussion. There are no significant rales, rhonchi, wheezes or rubs. Heart: Rate is controlled, rhythm is irregular. Heart tones are distant. There is a grade 2/6 systolic ejection murmur heard best left sternal border. Is no appreciable rub or gallop. Abdomen: Good bowel sounds are present. Abdomen is soft, nontender, no organomegaly or masses were appreciated. Extremities: Are symmetrical and well perfused. There is decreased edema of both lower extremities, there is no cellulitis, no rash. Neurologic: There are no focal neurological deficits. Cranial nerves II through XII are intact. There are no sensory or motor deficits. Lab and Diagnostics Result Diagram: 07/22/16 0500 07/22/16 0620 X-Rays, CTs and MRIs PROCEDURE: X-RAY CHEST, TWO VIEWS ([id number]) INDICATIONS: Follow up for Pulmonary edema TECHNIQUE: 2 views of the chest were acquired. COMPARISON: [facility], CR, XR CHEST 1VW (PORTABLE), 07/18/2016, 16: 02. [facility], CR, XR CHEST 2VW, 07/01/2016, 10:18. FINDINGS: Surgical changes and devices: None. Lungs and pleura: No pleural effusions or pneumothorax. Interstitium is prominent and mild edema is suspected. Mediastinum: Mediastinal contours appear normal. Heart size is enlarged. Bones and chest wall: No suspicious bony lesions. Overlying soft tissues appear unremarkable. IMPRESSION: Mild edema appears unchanged. Dictated by: Carlos Castillo RRA Interpreted: Cindy Hills MD on 07/21/2016 at 14:38 Transcribed by: СЕРГЕЙ on 07/21/2016 at 14:39 Approved by: Cindy Hills MD, PhD on 07/21/2016 at 16:55 Cardiac Echo Impressions Echocardiogram Report Name: KURT GALLO Date: 0 07/19/2016 Height: 70 in Hospital Exam Location: [facility] Weight: 184 lb Gender: Male BSA: 2.0 m2 : 1945 Age: 71 yrs BP: 107/78 mm Hg Reason For Study: Atrial fibrillation Ordering Physician: Performed By: Lilly Armenat Referring Physician: Dr. Billy Ly Interpretation Summary Underlying atrial fibrillation with rapid ventricular rate. 1. Mild left ventricular enlargement with severe systolic dysfunction. The estimatged ejection fraciton is less than 20%. Poor prognostic features such as less than 160ms deceleration time, elevated filling pressure and mitral regurgitation. 2. Severe left atrial enlargement. 3. Moderate to severe mitral regurgitation. Type I mitral rugurgitation ( Annular dilatation) 4. Mild to moderate tricuspid regurgitation. 5. Small pericardial effusion. Additional Diagnostics Coronary artery catheterization performed today showed: "IMPRESSION: 1. Very mild three-vessel coronary artery disease. 2. Mildly elevated left ventricular end-diastolic pressure. Assessment & Plan 71 year old male with history of acute on chronic systolic heart failure, mitral regurgitation, atrial fibrillation with poor rate control on Xarelto, COPD, and hypertension, who was sent to the emergency department by his decorating machine operator, Dr. Parnell. The patient was sent to be admitted for decompensated heart failure. The patient was previously on 40 mg Lasix but his PCP took him off this medication about 1.5 weeks ago. He also has a prostate problem and has previously needed a urinary catheter. He removed the catheter about 1 week ago. At this time he complains of shortness of breath, urinary retention, and fluid build up. The shortness of breath has been worsening over the last few weeks. He has needed to sleep in a recliner and has not been able to complete his normal daily activities. His family members report that the patient has gained about 20 pounds in the last 2-3 weeks. # Acute on Chronic Systolic Congestive Heart Failure with pulmonary edema - The ejection fracture is only 20% - We have placed on a fluid restriction - We will place on a heart healthy diet - Lasix 40 mg IV twice a day has been started - Continue metoprolol form of Toprol-XL 75 mg by mouth daily at bedtime, as ordered by cardiology. - Amiodarone started by cardiology and will continue. - Transferred to PCU for amiodarone drip. # Acute on chronic respiratory failure secondary to the above with exacerbation of COPD - To need treatment for congestive heart failure - Continue albuterol # Bladder outlet obstruction - Patient was on Flomax but stopped it on his own. Flomax was restarted. - Michelle catheter was placed due to outlet obstruction and for close monitoring of Is and Os - Due to low blood pressure Flomax dose was decreased to 0.4 mg by mouth daily at bedtime today cardiology.. Chronic medical problems 1. Chronic systolic heart failure, now with acute exacerbation. 2. Moderate mitral regurgitation. 3. Atrial fibrillation on Xarelto. Xarelto on hold for now 4. Chronic obstructive pulmonary disease with acute exacerbation secondary to congestive heart failure.. 5. Hypertension well controlled. 6. Tobacco use patient counseled on quitting smoking. Disposition: Patient likely to be her another 2 - 3 days for evaluation and treatment of the above. GI Prophylaxis: Not indicated VTE Prophylaxis: Other (fully anticoagulated with Rivaroxaban ) VTE Mechanical Devices: Intermittant Pneumatic CD Resuscitation Status: DNR/DNI:Do Not Resuscitate/Intubate Will Hyman MD Jul 22, 2016 10:02
--- NOTE | 2016-07-22 10:34 | NUR ---
Transfer to 2021 Patient transferred to 2021 at 1025 for amiodarone drip in preparation for procedure later today. Vitals stable, reports generalized pain as tolerable at 3-4/10 and in no apparent distress. Report given to Lilly Eisenberg RN. Chart and belongings with patient. aware of transfer.
[2016-07-22] MEDS: 0.9% Sodium Chloride 1,000 ML IV SCH ×2 (10:36→21:13)
[2016-07-22] MEDS ORDERED: Phenylephrine/NS 100 mCg/mL 10 mL Syringe IVPUSH ONE (12:04)
[2016-07-22] MEDS ORDERED: Propofol 10 mg/mL 20 mL Inj ONE (12:04)
[2016-07-22] MEDS ORDERED: Amiodarone 360 mg/200 mL D5W 360 MG, Filter, Taxol 14256-28 1 EACH in IV Premix 1 EACH IV SCH (12:25)
[2016-07-22] MEDS ORDERED: IV Premix 1 EACH IV ONE ×2 (12:38→18:45)
[2016-07-22] MEDS ORDERED: Amiodarone 360 mg/200 mL D5W Premix IV ONE ×2 (12:38→18:45)
--- NOTE | 2016-07-22 12:43 | PROG NOTE ---
[address] [address] PROGRESS NOTE PATIENT: KURT GALLO : 1945 MR#: [id number] ADMIT: 07/18/2016 JOB ID: [id number] DATE: 07/22/2016 PROBLEM LIST: 1. Severe nonischemic cardiomyopathy with ejection fraction of 20%. 2. Atrial fibrillation. 3. Tachycardia-induced cardiomyopathy. 4. Chronic obstructive pulmonary disease. 5. Acute decompensated heart failure with fluid retention. 6. Benign prostatic hypertrophy, status post Michelle catheter. HISTORY OF PRESENT ILLNESS: Patient was admitted to the hospital with acute decompensated heart failure and was initiated on IV diuretics and resumption of his medication. Patient had been off his medications for last several months. Patient was first referred by Dr. Robert Avendano to [facility] for consultation prior to his benign prostatic hypertrophy. On arrival in the emergency room, a Michelle catheter was placed, and successful diuresis has been performed. Patient has since admission lost 10 pounds. Patient is doing better. His heart rate is much better controlled in the range of 90s to 100s on 400 mg of amiodarone twice daily and 75 mg of metoprolol succinate. He denies any complaints. He is less short of breath. He is able to lay flat. He denies any orthopnea at this time. He is able to walk without much difficulty, although he continues to have a significant elevation of his heart rate with activity. Today, this morning he did not have any complaints. He is able to lay flat and was able to sleep without much distress or difficulty. The patient had a coronary angiography performed yesterday which demonstrated no significant coronary artery disease. PHYSICAL EXAMINATION: Vital signs today, his blood pressure is 90/56, respiratory rate of 18, heart rate of 101, and temperature of 36.2 with oxygen saturation of 95% on 3 L. His weight is approximately 7 kg less than his admission weight. His input/output is -1400 since admission. S1-S2 is irregularly irregular. Belly is soft, benign. Lower extremities with no pedal edema. Chest demonstrates no significant crackles or wheezing at this time. LABORATORIES: His white count is 3.7, hemoglobin of 10.8, hematocrit of 31.4, and platelets of 158. BUN and creatinine is 19 and 1.04, and sodium and potassium 4.2. His BNP is down from admission to 19,312. IMPRESSION: 1. The patient has atrial fibrillation with rapid ventricular rate, difficult to control with amiodarone and beta-[place] regimen. The patient is also on Xarelto. I spoke to Dr. Byers who suggested to start IV amiodarone and attempt cardioversion. Patient is n.p.o. at this point. Prior to his cardioversion, I have started him on rivaroxaban 20 mg daily, and he will be getting a loading dose of amiodarone followed by maintenance dose, and I will attempt cardioversion this afternoon. 2. Heart failure. He will continue his current regimen. Patient had episodes of hypotension last night. His dose of metoprolol as well as Lasix was withheld. His renal function has been stable, though he has been maintaining low blood pressures during this hospital stay which is a poor prognostic sign. His echo also demonstrates severe left ventricular dysfunction with moderate mitral regurgitation and an evidence of elevated filling pressures. PLAN: 1. N.p.o. IV bolus of amiodarone followed by maintenance dose at 1 mg/minimal. 2. Hold Lasix for now.
--- NOTE | 2016-07-22 13:53 | NUR ---
[facility] Pt was taken to [facility] in bed for procedure
--- NOTE | 2016-07-22 14:02 | NUR ---
Patient received from 2021, he is alert and oriented. at bedside, anesthesiologist and Dr Parnell present.Additional iv started for anesthesia use. Addendum: 07/22/16 at 1404 by FRANCISCO GIL RN Pt currently has amiodarone infusing into left peripheral iv.
[2016-07-22] MEDS ORDERED: Phenylephrine/NS-PF 100 mCg/mL 5 mL Syringe IVPUSH ONE (14:16)
--- NOTE | 2016-07-22 14:56 | PCM.HPANE ---
Patient Data Date of Service: Jul 22, 2016 Surgeon Admitting Provider:Narendra Melchor MD Attending Provider:Narendra Melchor MD Primary Care Physician:Don Ly DO Other Provider: Reason for Visit Chf,Acute CHF,ACUTE Ht/WT & BMI Height (Feet): 5 Height (Inches): 10.00 Weight (Kilograms): 78.200 Body Mass Index 24.68 Allergies Coded Allergies: pregabalin (Verified Allergy, Severe, "collapsed", 07/18/16) Past Anesthesia History Anesthesia History: Denies:: Anesthesia Reactions Diabetes History Hx Diabetes?: No MRSA MRSA: No Medications Reported Medications Rivaroxaban (Xarelto)20 Mg Zgqbwv36 Mg PO HS 07/18/16 Docusate Sodium (Diocto)50 Mg/5 Ml Orfjzj81 Mg PO HS PRN For Constipation 07/18/16 Sennosides (Senna)8.6 Mg Gboiaz41.2 Mg PO HS 07/18/16 Multivit with Calcium,Iron,Min (Therapeutic M)1 Each Tablet1 Each PO HS 07/18/16 Alfuzosin ER (Uroxatral)10 Mg Lwdumj02 Mg PO HS Ref 0 07/18/16 Tamsulosin (Flomax)0.4 Mg Capsule0.8 Mg PO HS Ref 0 07/18/16 Oxycodone (Roxicodone)5 Mg Tablet5 Mg PO TID PRN For Pain Ref 0 07/18/16 Olanzapine 10 Mg Dwxlxe84 Mg PO HS Ref 0 07/18/16 Albuterol Neb Soln 2.5 Mg/3 Ml Vial.neb2.5 Mg INHALATION Q4H PRN For Shortness of Breath Ref 0 07/18/16 Amitriptyline 50 Mg Tab50 Mg PO HS Ref 0 07/18/16 Ipratropium/Albuterol Sulfate (Iprat-Albut 0.5-3(2.5) mg/3 mL Inhalant Soln)3 Ml Ampul.neb3 Ml IH Q6H Ref 0 07/18/16 Trazodone 50 Mg Qvetvo016 Mg PO HS Ref 0 USE 3 TABLETS OF THE 50 MG TABLETS (PT CANNOT SWALLOW LARGER PILL) 06/16/15 Metoprolol Succinate ER 50 Mg Tab.er.24h50 Mg PO HS Ref 0 06/16/15 Duloxetine 30 Mg Capsule.dr30 Mg PO HS Ref 0 TAKE WITH 60 MG DULOXETINE (=90 MG TOTAL) 06/15/15 Oxycodone ER (Oxycontin)20 Mg Tab.er.12h20 Mg PO BID 02/05/15 Duloxetine (Cymbalta)60 Mg Capsule.dr60 Mg PO HS TAKE WITH 30 MG DULOXETINE (=90 MG TOTAL) 02/05/15 Discontinued Reported Medications Doxazosin (Cardura)8 Mg Tablet8 Mg PO HS Ref 0 06/16/15 Furosemide 40 Mg Amvain29 Mg PO DAILY 06/16/15 Olanzapine 5 Mg Tablet5 Mg PO DAILY Ref 0 06/16/15 Finasteride 5 Mg Tablet5 Mg PO DAILY 30 Days Ref 0 06/15/15 Doxazosin (Cardura)8 Mg Tablet8 Mg PO HS Ref 0 06/15/15 Amiodarone 200 Mg Ujckow564 Mg PO HS Ref 0 06/15/15 Rivaroxaban (Xarelto)20 Mg Tyhubd59 Mg PO HS #30 04/13/15 oxyCODONE 10 Mg Veynak58-98 Mg PO q 4-6 hrs PRN For Pain Ref 0 04/13/15 Discontinued Scripts Metoprolol Succinate ER 50 Mg Tab.er.24h50 Mg PO DAILY 30 Days Ref 0 Prov:Alireza Baron MD 04/20/16 History History of ENT Problems?: No HEENT History: Positive for:: Cataracts (corrected) Denies:: Dysphagia Sinus Problem Hx of Heart Problems?: Yes Cardiovascular History: Positive for:: Chest Pain (Cath 07/21/2016 with non- obstructing disease) Congestive Heart Failure (EF 20%) Hypertension Irregular Heartbeat (atrial fib with RVR) Denies:: Cardiac Surgery Edema Heart Murmur Pacemaker Thrombophlebitis Hx of Respiratory Problem?: Yes Respiratory History: Positive for:: COPD Dyspnea (current) Pneumonia (3 times over 40 years) Denies:: Asthma Chest Surgery Emphysema Hemoptysis Tuberculosis Hx Neurologic Problems?: No Neurological History: Denies:: Alzheimer's Disease Dementia Dizziness Headaches Parkinson's Disease Seizures Hx of GI Problems?: No Gastrointestinal History: Denies:: Diverticulitis Gastroesphageal Reflux Gastrointestinal Bleeding Heartburn Hepatitis Hiatal Hernia Rectal Bleeding Hx of Problems?: No Genitourinary History: Denies:: HX of Hemodialysis Kidney Stones Urinary Tract Infection HX of Peritoneal Dialysis: No Male Hx: Denies:: Prostate Problems Scrotal Mass Testicular Surgery Hx Musculoskeletal Problems?: Yes Musculoskeletal History: Positive for:: Back Injury Musculoskeletal Trauma (2004 back injury, left arm fracture 2013) Denies:: Joint Replacement Hx of Psycho/Social Problems?: Yes Psycho Social History: Positive for:: Anxiety Hx Depression (on cymbalta and seroquel) Denies:: Bipolar Disorder Suicide Attempt Hx Surgeries?: Yes (hiatal hernia) Hx Any Other Health Problems?: Yes Other History: Positive for:: Hospitalization (atrial fib) Denies:: Cancer Thyroid Disease History Blood Transfusions: Denies:: Blood Transfuse Reaction Blood Transfusions Hx Diabetes: No Hx Alcohol Use: NoHx Substance Use: No Smoking Status: Former Smoker Have You Smoked inLast 12 mo: YesApprox How Many Cigarettes/day: 20 Stop/Bang Treated for Sleep Apnea?: Yes ("working on it") Do You Have a CPAP Machine?: No S-Snoring: Do You Snore Loudly: Yes T-Tired: feel tired, fatigued: Yes O-Obsered: Observed not breath: Yes P-Blood Pressure: treated: Yes B- Body Mass Index > 35 kg/m2: No A- Age over 50: Yes N- Neck Large Circumference: No G- Gender Male: Yes SATISH Total Score: 5 SATISH Risk Assessment: High Risk, =/>3 Yes Risk Assessment Category Category 1A: Patient has history of documented sleep apnea, and HAS NOT received any narcotic, sedative or anesthesia administration during this stay. Category 1B: Patient has history of documented sleep apnea, and HAS received any narcotic , sedative or anesthesia administration during this stay Category 2: Patient has SUSPECTED Obstructive Sleep Apnea, and HAS received any narcotic , sedative or anesthesia administration during this stay. Category 3: Patient has SUSPECTED Obstructive Sleep Apnea and HAS NOT received narcotic, sedative or anesthesia administration during this stay. Category 4: Outpatient in Procedural Areas with known sleep apnea or who screen positive for High Risk via the STOP/BANG questionnaire. Exam Exam Vital Signs Vital Signs Date Time Temp Pulse Resp B/P Pulse Ox O2 Delivery O2 Flow Rate FiO2 07/22/16 12:21 36.8 107 18 86/62 95 Nasal Cannula 2.00 07/22/16 10:52 100 12 96 Nasal Cannula 2.00 07/22/16 09:36 36.2 114 16 100/64 95 Nasal Cannula 1.50 07/22/16 08:30 Supplement Oxygen 07/22/16 08:00 107 General Appearance: Alert, Oriented X3, Cooperative HEENT/AIRWAY: MP 2, Neck Movement (OK), Mouth Opening (Wide), Other (Poor dentition) Lungs: Clear to Auscultation, Normal Air Movement Heart: Normal S1, Normal S2, Other (a. fib with RVR) Meds/Labs/Diagnostics Admission Meds Current Medications Amiodarone HCl (Cordarone) 400 mg BID PO Last administered on 07/21/16 20:59; Start 07/21/16 at 20:30 Sodium Chloride 10 ml 10 ml MARIELA IVFLUSH Last administered on 07/22/16 00:30; Start 07/21/16 at 16:30 Lactated Ringer's 1,000 ml @ 120 mls/hr Q8H20M IV Last administered on 05:59; Start 07/22/16 at 05:00; Stop 07/22/16 at 13:19; Status DC Sodium Chloride 1,000 ml @ 100 mls/hr Q10H IV Last administered on 07/22/16 10:36; Start 07/22/16 at 08:33 Amiodarone HCL/ Dextrose/Premix (Amiodarone 150 mg/100 mL D5W/IV Premix) 100 ml @ 400 mls/hr ONCE ONCE IV Last administered on 07/22/16 10:25; Start at 08:45; Stop 07/22/16 at 09:43; Status DC Labs Test 07/18/16 15:48 07/18/16 17:12 07/18/16 17:30 07/19/16 06:40 Hold Purple Top Tube Received (Received) Prothrombin Time 13.4sec (8.1-12.5) Prothromb Time International Ratio 1.25ratio Hold Blue Top Tube Received (Received) Lipase 15U/L (13-60) Hold Red Top Tube Received (Received) Hold Sprague Top Tube Received (Received) Lactic Acid Level 1.1mmol/L (0.4-2.0) Hold Urine Received (Received) Troponin T 0.010ug/L (0.0-0.011) Test 07/20/16 09:34 07/22/16 05:00 07/22/16 06:20 Phosphorus Level 4.6mg/dL (2.5-4.9) Pro-B-Type Natriuretic Peptide 42451dj/mL (0-376) White Blood Count 3.7th/mm3 (3.8-10.1) Red Blood Count 3.94mil/mm3 (4.40-5.80) Hemoglobin 10.8g/dL (13.8-17.2) Hematocrit 34.4% (41.0-50.0) Mean Corpuscular Volume 87.3fL (81-100) Mean Corpuscular Hemoglobin 27.4pg (27.0-35.0) Mean Corpuscular Hemoglobin Concent 31.4% (32.0-37.0) Red Cell Distribution Width 13.9% (12.3-15.4) Platelet Count 158bil/L (150-400) Neutrophils (%) (Auto) 55.9% (40-74) Lymphocytes (%) (Auto) 28.2% (14-46) Monocytes (%) (Auto) 9.9% (4-12) Eosinophils (%) (Auto) 4.6% (0-5) Basophils (%) (Auto) 1.1% (0-3) Sodium Level 139mEq/L (134-144) Potassium Level 4.2mEq/L (3.5-5.2) Chloride Level 97mEq/L (97-108) Carbon Dioxide Level 31mmol/L (18-29) Blood Urea Nitrogen 19mg/dL (8-27) Creatinine 1.04mg/dL (0.76-1.27) Estimat Glomerular Filtration Rate 75mL/min (>59) Glucose Level 92mg/dL (60-99) Calcium Level 8.8mg/dL (8.5-10.1) Magnesium Level 2.1mg/dL (1.6-2.6) Total Bilirubin 0.4mg/dL (0.0-1.2) Aspartate Amino Transf (AST/SGOT) 9U/L (0-50) Alanine Aminotransferase (ALT/SGPT) 6U/L (0-44) Alkaline Phosphatase 82U/L (25-160) Total Protein 5.7g/dL (6.4-8.4) Albumin 2.9g/dL (3.4-5.0) Diagnositcs Echo with EF 20%, mod/severe MR Plan Impression Patient chart reviewed, patient interviewed and anesthestic plan with risks, benefits, and alternatives discussed, and informed consent obtained. NPO Status: > 8 hours ASA Physical Status: ASA3 Severe Disease Anesthetic Plan: MAC Bene/Risks/Altern/Consents: Yes HP Complete Prior to Induction: Yes Clint Yang MD Jul 22, 2016 13:31
--- NOTE | 2016-07-22 14:57 | PCM.ANEP1 ---
Post Anesthesia Phase 1 PACU Phase 1 Assessment Date of Service: Jul 22, 2016 Vital Signs Vital Signs Date Time Temp Pulse Resp B/P Pulse Ox O2 Delivery O2 Flow Rate FiO2 07/22/16 12:21 36.8 107 18 86/62 95 Nasal Cannula 2.00 07/22/16 10:52 100 12 96 Nasal Cannula 2.00 07/22/16 09:36 36.2 114 16 100/64 95 Nasal Cannula 1.50 07/22/16 08:30 Supplement Oxygen 07/22/16 08:00 107 Anesthetic Administered: MAC Level of Alertness: Sleepy, easy to arouse PEREZ's with Equal Strength: Yes Pain: No Pain Scale Score: 5 Oxygen Delivery: Simple Mask Lungs: Normal Air Movement Clint Yang MD Jul 22, 2016 14:57
--- NOTE | 2016-07-22 14:59 | PCM.ANEP2 ---
Post Anesthesia Evaluation ASA/CMS Post Anesthesia Date of Service: Jul 22, 2016 VS in Patient's Normal Range?: Yes Resp Stable; Airway Patent?: Yes CV Function & Hydration Stable: Yes (BP remains borderline low, as pre- procedure) Mental Status Recovered?: Yes Pain control Satisfactory?: Yes N/V Control Satisfactory?: Yes Clint Yang MD Jul 22, 2016 14:59
--- NOTE | 2016-07-22 15:08 | NUR ---
report called to Lucie Woods R.N. Pt is stable,cardioversion completed, he remains in sinus rhythm. His O2 has been weaned down to 2l per nasal cannula which is what he was on, at transfer to [facility]. He is fully awake, conversant with his who is at the bedside and he is taking ice chips without difficulty.
--- NOTE | 2016-07-22 15:20 | NUR ---
Pt tx back to room in stable condition.Handoff at bedside to his nurse.
--- NOTE | 2016-07-22 17:26 | NUR ---
RAMIRO/ECHO/Amiodarone The pt received an amiodarone bolus and was placed on infusion protocol prior to a RAMIRO/ECHO. the procedure was successful, although the pt's rhythm appears to be converting to Aflutter/Afib with rates in the low 100's.
[2016-07-22] MEDS: MeTOProlol XL 50 mg ER24 Tablet PO SCH (19:29)
[2016-07-22] MEDS: DULoxetine 30 mg DR Capsule PO SCH (19:30)
--- NOTE | 2016-07-22 21:46 | NUR ---
BP/EKG Pt BP low at 80/52 with MAP of 61. Pt denies symptoms of dizziness or nausea. EKG shows irregular ST, HR of 120, with PACs as well as QTC of 538. substation maintenance technician reports some Afib bursts. Call made to Dr Parnell, report given of status and all medications received. Received orders to stop amio drip now, continue PO dose of amio. BP continues down to 75/52 with MAP of 58, bolus started at 2139 per standing orders.
[2016-07-22 21:53] LABS: Magnesium 2.1 mg/dL (1.6-2.6)
[2016-07-23] VITALS (12 sets, daily range): BP systolic 74–100; BP diastolic 53–76; PULSE 52–106; RESP 16–20; O2SAT 92–99
[2016-07-23] MEDS: Albuterol-Ipratropium 3 mL Inhalation Solution NEB SCH ×4 (02:47→21:22)
[2016-07-23 05:26] LABS: BASOPHILS % (AUTO) 0.8 % (0-3); EOSINOPHILS % (AUTO) 5.1 % (0-5); MONOCYTES % (AUTO) 10.8 % (4-12); Mean Corpuscular Hemoglobin 27.8 pg (27.0-35.0); NEUTROPHILS % (AUTO) 59.4 % (40-74); Platelet Count 170 bil/L (150-400)
[2016-07-23 05:56] LABS: Magnesium 2.1 mg/dL (1.6-2.6)
[2016-07-23] MEDS: 0.9% Sodium Chloride 1,000 ML IV SCH ×2 (06:46→14:33)
[2016-07-23] MEDS: Sodium Chloride LOK Flush 10 mL Syringe IVFLUSH SCH ×2 (08:10→15:41)
[2016-07-23] MEDS: Polyethylene Glycol (PEG) 17 Gm Powder PO SCH (08:11)
[2016-07-23] MEDS: Furosemide 10 mg/mL 4 mL Inj IVPUSH SCH ×2 (08:11→19:45)
[2016-07-23] MEDS: oxyCODONE ER 20 mg ER12 Tablet PO SCH ×2 (08:11→19:37)
--- NOTE | 2016-07-23 09:24 | NUR ---
[facility] Signed
--- NOTE | 2016-07-23 12:12 | DRSVH ---
[facility] [address] [place] [address] Echocardiogram Report Name: KURT GALLO Date: 07/22/2016 Height: 70 in Hospital Exam Location: [facility] Weight: 172 lb Gender: Male BSA: 2.0 m2 : 1945 Age: 71 yrs BP: 91/70 mmHg Reason For Study: PRE-CARDIOVERSION Ordering Physician: Performed By: Milan Hackett Interpretation Summary 1. Severe left biventricular dysfunction. 2. Spontaneous echo contrast is noted. Left appendage is dilated and free of thrombus. LAAV flow is severely diminished due to stasis and severe end stage systolic dysfunction. 3. Moderate mitral regurgitation. Procedure: Informed consent for Transesophageal Echocardiogram, and use of a contrast agent as needed, was obtained prior to the procedure. The patient was brought to the [facility] in a fasting state. An intravenous line was placed. A topical anesthetic agent was used for oropharangeal anesthesia. A bite block was inserted. Sedation was managed by anesthesiologist; see anesthesiology notes for details. The transesophageal probe was passed without difficulty. The patient was in atrial fibrillation with rapid ventricular response during the exam with a heart rate exceeding 100 bpm. There were no complications. Atria: No thrombus is detected in the left atrial appendage. Spontaneous contrast in left atrial appendage. Mitral Valve: The mitral valve leaflets appear to open well. There is moderate to severe mitral regurgitation. Electronically signed by: Dr. Joe Parnell on Reading Physician:07/23/2016 12:11 PM
--- NOTE | 2016-07-23 13:38 | PROG NOTE ---
[address] [address] PROGRESS NOTE PATIENT: KURT GALLO : 1945 MR#: [id number] ADMIT: 07/18/2016 JOB ID: [id number] DATE: 07/23/2016 SUBJECTIVE: This is hospital day four, status post synchronized cardioversion, status post left heart catheterization. The patient is alert and oriented. Lying in bed comfortably. His blood pressure began to drop last night to systolic pressures between 74 and 96 systolic. As such, his amiodarone drip and all antihypertensive medications were stopped. IV Lasix has been withheld. He is being administered 100 mL/h of IV normal saline. Blood pressure is 86/66, pulse is 92, respirations are 16. SpO2 is 92% on 2 L by nasal cannula. She remains on metoprolol. Lungs are clear to auscultation. There is no JVD. Abdomen is soft and nontender. There is no peripheral edema. The left groin catheter entry site is clean, dry and intact without signs of infection. There are +1 dorsalis pedis and posterior tibialis pulses bilaterally. media monitor shows a sinus rhythm with a first-degree AV block. There was one event of five beats which might be interpreted as ventricular tachycardia, but it is difficult to tell whether this is the case or not without an EKG. The episodes are regular and may be interpreted as atrial fibrillation. I and O 2432 in, 2500 out, which is a net of -68. His weight is 77.3 kg. LABORATORIES: White blood count 3.7, hemoglobin 10.9, hematocrit 35.4, platelet count 170. Sodium 141, potassium 4.3, chloride 101, carbon dioxide 30, BUN 20, creatinine 1.15, magnesium 2.1. AST 10, ALT 6, alk phos 80. Total protein is 5.7. Albumin is 2.8. ASSESSMENT AND PLAN: 1. Atrial fibrillation. The patient was cardioverted yesterday. He is maintaining a sinus rhythm with a first degree AV block. Amiodarone drip has been stopped in favor of 400 mg of amiodarone p.o. twice daily. He continues to be on Xarelto for anticoagulation therapy. 2. Heart failure with hypotension. We may have over diuresed him. He has an EF of 20% by echo. Reduced EF with hypotension is a poor prognostic sign. We will continue to withhold Lasix if he remains hypotensive. We will continue to withhold blood pressure medication. On the other hand, we recommend that the patient continues metoprolol. 3. Left heart catheterization. That study revealed very mild three-vessel coronary artery disease and mild elevated left ventricular end-diastolic pressures which is consistent with systolic heart failure. It is pretty clear that from the study that exacerbation of heart failure is not caused by ischemic heart disease.
[2016-07-23] MEDS: HYDROcodone-APAP 5-325 mg Tablet PO PRN ×2 (15:40→17:25)
--- NOTE | 2016-07-23 16:40 | PCM.PNMED ---
Subjective Date of Service Jul 23, 2016 Subjective Patient states he is feeling fine, has no shortness of breath, no nausea, no dizziness no chest pain. Says he would like to get up and move around but "you guys won't let me." Overnight was transferred to [facility] for hypotension and started on amiodarone drip. States he has been asymptomatic, and grossly feels better since admission Exam Vital Signs Vital Sign - Last Date Time Temp Pulse Resp B/P Pulse Ox O2 Delivery O2 Flow Rate FiO2 07/23/16 14:35 78 16 94 Nasal Cannula 2.00 07/23/16 12:40 36.4 89/57 Intake and Output 07/22/16 07/22/16 07/23/16 Cumulative From/Thru 15:00 23:00 07:00 07/18/16 15:43 - 07/23/16 05:22 Intake Total 450 ml 1151 ml 2773 ml 9778 ml Output Total 1825 ml 1750 ml 2500 ml 04037 ml Balance -1375 ml -599 ml 273 ml -65492 ml Intake Oral 450 ml 240 ml 400 ml 5951 ml IV Total 911 ml 2373 ml 3827 ml Output Urine Total 1825 ml 1750 ml 2500 ml 19230 ml # Bowel Movements 0 0 Exam General: Laying in bed, no apparent distress. HEENT: Normocephalic, atraumatic, EOMI grossly, Cardiovascular: Regular rate and rhythm, no clicks murmurs rubs appreciated, peripheral pulses 2/4 equal bilaterally Pulmonary: Clear to auscultation bilaterally, no wheezing rales or rhonchi appreciated Abdominal: Soft to palpation, bowel sounds present 4, no hepatosplenomegaly. Negative rebound. Extremities: No edema appreciated. No tenderness, asymmetry. Neuro: Neurologically grossly intact, strength is equal bilaterally upper and lower extremities. MSK: able to move extremities on their own volition, strength 5 out of 5 equal bilaterally to upper and lower extremities. Lab and Diagnostics Result Diagram: 07/23/1645407/[id number]/16454 X-Rays, CTs and MRIs PROCEDURE: X-RAY CHEST, TWO VIEWS ([id number]) INDICATIONS: Follow up for Pulmonary edema TECHNIQUE: 2 views of the chest were acquired. COMPARISON: [facility], CR, XR CHEST 1VW (PORTABLE), 07/18/2016, 16: 02. [facility], CR, XR CHEST 2VW, 07/01/2016, 10:18. FINDINGS: Surgical changes and devices: None. Lungs and pleura: No pleural effusions or pneumothorax. Interstitium is prominent and mild edema is suspected. Mediastinum: Mediastinal contours appear normal. Heart size is enlarged. Bones and chest wall: No suspicious bony lesions. Overlying soft tissues appear unremarkable. IMPRESSION: Mild edema appears unchanged. Dictated by: Carlos Castillo RRA Interpreted: Cindy Hills MD on 07/21/2016 at 14:38 Transcribed by: СЕРГЕЙ on 07/21/2016 at 14:39 Approved by: Cindy Hills MD, PhD on 07/21/2016 at 16:55 Cardiac Echo Impressions Echocardiogram Report Name: KURT GALLO Date: 07/19/2016 Height: 70 in Hospital Exam Location: [facility] Weight: 184 lb Gender: Male BSA: 2.0 m2 : 1945 Age: 71 yrs BP: 107/78 mm Hg Reason For Study: Atrial fibrillation Ordering Physician: Performed By: Lilly Armenta Referring Physician: Dr. Billy Ly Interpretation Summary Underlying atrial fibrillation with rapid ventricular rate. 1. Mild left ventricular enlargement with severe systolic dysfunction. The estimatged ejection fraciton is less than 20%. Poor prognostic features such as less than 160ms deceleration time, elevated filling pressure and mitral regurgitation. 2. Severe left atrial enlargement. 3. Moderate to severe mitral regurgitation. Type I mitral rugurgitation ( Annular dilatation) 4. Mild to moderate tricuspid regurgitation. 5. Small pericardial effusion. Additional Diagnostics Coronary artery catheterization performed today showed: "IMPRESSION: 1. Very mild three-vessel coronary artery disease. 2. Mildly elevated left ventricular end-diastolic pressure. Assessment & Plan 71 year old male with history of acute on chronic systolic heart failure, mitral regurgitation, atrial fibrillation with poor rate control on Xarelto, COPD, and hypertension, who was sent to the emergency department by his shingle trimmer, Dr. Parnell. The patient was sent to be admitted for decompensated heart failure. The patient was previously on 40 mg Lasix but his PCP took him off this medication about 1.5 weeks ago. He also has a prostate problem and has previously needed a urinary catheter. He removed the catheter about 1 week ago. At this time he complains of shortness of breath, urinary retention, and fluid build up. The shortness of breath has been worsening over the last few weeks. He has needed to sleep in a recliner and has not been able to complete his normal daily activities. His family members report that the patient has gained about 20 pounds in the last 2-3 weeks before admission. #1 acute hypotension, not present on admission, treatment ongoing. -Attributed to over diureses. -Continue to hold Lasix as patient continues to be hypotensive. -Continue to withhold blood pressure medications -Per cardiology's recommendation, continue metoprolol as below #2 Acute on Chronic Systolic Congestive Heart Failure with pulmonary edema. Present on admission. Improving. - The ejection fracture is only 20% - We have placed and kept on a fluid restriction - continue heart healthy diet - Lasix 40 mg IV twice a day has been started - Continue metoprolol form of Metoprol-XL 75 mg by mouth daily at bedtime, as ordered by cardiology. - Amiodarone drip was stopped by cardiology he was placed on amiodarone 400 mg by mouth twice a day. - Keep PCC status due to concern for hypotension and need for pressor support. #3 Acute on chronic respiratory failure secondary to the above with exacerbation of COPD. present on admission Improved. - Treatment for congestive heart failure as above - Continue albuterol #4 Bladder outlet obstruction, present on admission. Active. - Patient was on Flomax but stopped it on his own. Flomax was restarted. - Michelle catheter was placed due to outlet obstruction and for close monitoring of Is and Os - Due to low blood pressure Flomax dose was decreased to 0.4 mg by mouth daily at bedtime by cardiology. Will continue this dosing until readjusted by cardiology. Chronic medical problems 1. Chronic systolic heart failure, now with acute exacerbation. 2. Moderate mitral regurgitation. 3. Atrial fibrillation on Xarelto. Status post cardioversion. 4. Chronic obstructive pulmonary disease with acute exacerbation secondary to congestive heart failure.. 5. Hypertension well controlled. 6. Tobacco use patient counseled on quitting smoking. Disposition: Patient likely to be here another 2 - 3 days for evaluation and treatment of the above. Additionally, realistic expectations for management need to be discussed on a multidisciplinary basis, and if patient should be discharged home, alf facility, or hospice if no appreciable recovery is anticipated. GI Prophylaxis: Not indicated VTE Prophylaxis: Other (fully anticoagulated with Rivaroxaban ) VTE Mechanical Devices: Intermittant Pneumatic CD Resuscitation Status: DNR/DNI:Do Not Resuscitate/Intubate Attending Statement The patient was seen and examined together with Dr. Everett on 07/23/2016 and I agree with the history, exam and plan as outlined in the note above. . Erick Everett DO Jul 23, 2016 16:40 Kurt Evangelista MD Jul 24, 2016 18:13
--- NOTE | 2016-07-23 17:44 | NUR ---
BP/Ambulation/POC The pt's BP's continue to be low - MD's all aware. Joe held this morning per Soheila report. The pt was able to sit at the bedside, then take a walk around the unit with only a slight drop in BP - asymptomatic. The POC is potential home on Hospice. Further consultation needed.
[2016-07-23] MEDS: DULoxetine 30 mg DR Capsule PO SCH (19:37)
[2016-07-23] MEDS: MeTOProlol XL 50 mg ER24 Tablet PO SCH (19:46)
[2016-07-24 00:04] VITALS: BP 88/58; PULSE 72; RESP 18; O2SAT 95
[2016-07-24] MEDS: Sodium Chloride LOK Flush 10 mL Syringe IVFLUSH SCH ×2 (00:30→07:46)
[2016-07-24] MEDS: 0.9% Sodium Chloride 1,000 ML IV SCH (00:47)
[2016-07-24] MEDS: Albuterol-Ipratropium 3 mL Inhalation Solution NEB SCH ×2 (02:30→08:23)
[2016-07-24 03:52] VITALS: BP 94/65; PULSE 76; RESP 20; O2SAT 94
[2016-07-24 05:34] VITALS: PULSE 80
[2016-07-24 05:37] LABS: BASOPHILS % (AUTO) 0.8 % (0-3); EOSINOPHILS % (AUTO) 4.2 % (0-5); MONOCYTES % (AUTO) 10.7 % (4-12); Mean Corpuscular Hemoglobin 27.6 pg (27.0-35.0); Mean Corpuscular Volume 87.6 fL (81-100); NEUTROPHILS % (AUTO) 57.8 % (40-74); Platelet Count 181 bil/L (150-400)
[2016-07-24 07:43] VITALS: BP 99/75; PULSE 79; RESP 18; O2SAT 98
[2016-07-24] MEDS: oxyCODONE ER 20 mg ER12 Tablet PO SCH (07:45)
[2016-07-24] MEDS: Furosemide 10 mg/mL 4 mL Inj IVPUSH SCH (07:45)
[2016-07-24] MEDS: Polyethylene Glycol (PEG) 17 Gm Powder PO SCH (07:45)
[2016-07-24 08:30] VITALS: PULSE 75; RESP 18; O2SAT 95
[2016-07-24] MEDS ORDERED: FURO-129 PO (13:32)
--- NOTE | 2016-07-24 13:39 | PCM.DIMED ---
Sue Ware DO 07/24/16 1339: Discharge Instructions Date of Service Jul 24, 2016 Dates of Hospitalization Jul 18, 2016 at 18:25 Discharge Diagnosis Discharge Diagnosis 1. Acute hypotension, not present on admission, improved. 2. Acute on Chronic Systolic Congestive Heart Failure with pulmonary edema. Present on admission. Improving. 3. Acute on chronic respiratory failure secondary to the above with exacerbation of COPD. present on admission Improved. 4. Bladder outlet obstruction, present on admission. Resolved. 5. Moderate mitral regurgitation. 6. Atrial fibrillation on Xarelto. Status post cardioversion. 7. Chronic obstructive pulmonary disease with acute exacerbation secondary to congestive heart failure. 8. Hypertension, chronic, well controlled. 9. Tobacco use, chronic. Medication Instructions Continue taking metoprolol succinate 50 mg daily. Stop taking lisinopril. Follow up with Dr. Parnell about the continued use of this medication. You are going home with a new medication called Lasix (furosemide). Take 20 mg daily. When you follow up with Dr. Parnell he will talk to you about continuing to take this. I sent the prescription electronically to your pharmacy in [place]. Continue taking all other medications not listed above as previously prescribed. Diet Heart Healthy Activity Limited until seen by PCP Call your provider Shortness of breath, Chest pain, Vomitting, Excessive diarrhea, Weakness ( unilateral) Patient Instructions We took your Michelle catheter out and your were able to void quite well. Continue taking your usual medications for BPH so that you continue to void well. Follow up with your PCP to discuss continued management of your BPH. Follow-up plan Please follow up with Dr. Parnell during the upcoming week. You should also plan to follow up with Dr. Ly during the next week or so. Follow-up Provider: Joe Parnell MD Follow-up with PCP in: 1 week Provider: Don Ly DO Follow-up in: 1 week Alec Evangelista MD 07/24/16 1815: Discharge Instructions Attending's Statement The patient was seen and examined together with Dr. Ware on 07/24/2016 and I agree with the history, exam and plan as outlined in the note above. . Sue Ware DO Jul 24, 2016 13:39 Alec Evangelista MD Jul 24, 2016 18:15
--- NOTE | 2016-07-24 13:52 | PCM.DC.MED ---
Discharge Summary Date of Service Jul 24, 2016 Dates of Hospitalization Date of Hospital Admission Jul 18, 2016 at 18:25 Date of Discharge: Jul 24, 2016 Providers: Admitting Physician: Narendra Melchor MD Primary Care Physician: Don Ly DO Attending Physician: Narendra Melchor MD Diagnosis at Time of Discharge Diagnosis at Time of Discharge 1. Acute hypotension, not present on admission, improved. 2. Acute on Chronic Systolic Congestive Heart Failure with pulmonary edema. Present on admission. Improving. 3. Acute on chronic respiratory failure secondary to the above with exacerbation of COPD. present on admission Improved. 4. Bladder outlet obstruction, present on admission. Resolved. 5. Moderate mitral regurgitation. 6. Atrial fibrillation on Xarelto. Status post cardioversion. 7. Chronic obstructive pulmonary disease with acute exacerbation secondary to congestive heart failure. 8. Hypertension, chronic, well controlled. 9. Tobacco use, chronic. Consultations Joe Parnell MD (cardiology) Procedures XRay, CTs & MRIs PROCEDURE: X-RAY CHEST, TWO VIEWS IMPRESSION: Mild edema appears unchanged. Dictated by: Carlos Castillo [facility] Interpreted: Cindy Hills MD on 07/21/2016 at 14:38 Cardiac Echo Impression RAMIRO Interpretation Summary 1. Severe left biventricular dysfunction. 2. Spontaneous echo contrast is noted. Left appendage is dilated and free of thrombus. LAAV flow is severely diminished due to stasis and severe end stage systolic dysfunction. 3. Moderate mitral regurgitation. Electronically signed by: Dr. Joe Parnell on Reading Physician:07/23/2016 12:11 PM TTE Interpretation Summary Underlying atrial fibrillation with rapid ventricular rate. 1. Mild left ventricular enlargement with severe systolic dysfunction. The estimatged ejection fraciton is less than 20%. Poor prognostic features such as less than 160ms deceleration time, elevated filling pressure and mitral regurgitation. 2. Severe left atrial enlargement. 3. Moderate to severe mitral regurgitation. Type I mitral rugurgitation ( Annular dilatation) 4. Mild to moderate tricuspid regurgitation. 5. Small pericardial effusion. Electronically signed by: Dr. Joe Parnell on Reading Physician:07/19/2016 11:10 AM Invasive Procedures DIAGNOSTIC CARDIAC CATHETERIZATION INDICATION: 1. Acute decompensated heart failure. 2. History of chronic atrial fibrillation status post ablation. 3. History of smoking. 4. History of chronic lung disease. IMPRESSION: 1. Very mild three-vessel coronary artery disease. 2. Mildly elevated left ventricular end-diastolic pressure. Joe Parnell MD 07/21/16 1214 Brief History Per the H&P by Dr. Melchor on 07/18/16: This is a 71 years old male with a myriad medical issues including refractory atrial fibrillation on Xarelto, chronic systolic heart failure, COPD , hypertension, who presented initially to his administrative assistant data entry Dr. Parnell send him to [place] for admission. Patient was found to have decompensated heart failure , shortness of breath and uncontrolled heart rate . Patient has stopped taking his medication including his Lasix for near 2 weeks now. He had was as well his Michelle catheter. He is known to have BPH and is under preparation for elective prostatectomy. Patient stated he stopped taking his medication because he is tired of taking too much pills. He had gained approximately 20 pounds since and has been complaining of lower extremity swelling . He has been having worsening shortness of breath on minimal exertion as well. NO chest pain, no fever, no chills,no abdominal pain , no nausea, no vomiting Hospital Course Patient to return home with his on 07/24/16. 1. Acute hypotension, not present on admission, improved. - Attributed to over diureses. Lasix held during admission. - Medications restarted slowly. Patient to go home on metoprolol succinate 50 mg daily and lasix 20 mg daily. Hold home lisinopril. - Follow up with Dr. Parnell by the end of the week. 2. Acute on Chronic Systolic Congestive Heart Failure with pulmonary edema. Present on admission. Improving. - Patient on a fluid restriction and should try to continue to limit salt and fluid intake upon discharge. - Continue Lasix 20 mg daily and follow up with Dr. Parnell. - Continue metoprolol succinate 50 mg daily. 3. COPD exacerbation secondary to systolic CHF, present on admission, improved. - Treatment for congestive heart failure as above in #2. - Continue albuterol and Duoneb nebulizers. - Continue 2L supplemental O2. 4. Bladder outlet obstruction secondary to BPH, present on admission, improved. - Patient was on Flomax but stopped it on his own. Flomax was restarted and should continue at 0.4 mg daily. - Michelle catheter was placed due to outlet obstruction and for close monitoring of Is and Os. Michelle removed on day of discharge and patient successfully voided. 5. Moderate mitral regurgitation, chronic, presume stable. - Continue outpatient follow up with Dr. Parnell. 6. Atrial fibrillation, chronic, presume stable. - Status post cardioversion. - Continue Xarelto per Dr. Parnell's recommendations. 7. Hypertension, chronic, well controlled. - Patient has been hypotensive in the hospital requiring medication adjustments. - Hold lisinopril until follow up with Dr. Parnell. 8. Tobacco use, chronic. - Patient counseled on quitting smoking. - Continue to encourage smoking cessation. Exam Vital Signs (Last) Date Time Temp Pulse Resp B/P Pulse Ox O2 Delivery O2 Flow Rate FiO2 07/24/16 08:48 Supplement Oxygen 07/24/16 08:30 75 18 95 2.00 07/24/16 07:43 36.8 99/75 Exam Exam on date of discharge: General: Laying in bed, no apparent distress. HEENT: Normocephalic, atraumatic, PERRLA, EOMI, no oral thrush appreciated, mucous membranes moist Neck: Supple, nontender, no JVD appreciated Cardiovascular: Regular rate and rhythm, no clicks murmurs rubs appreciated Pulmonary: Clear to auscultation bilaterally, no wheezing rales or rhonchi appreciated Abdominal: Soft to palpation, bowel sounds present 4, no hepatosplenomegaly. Negative rebound. Extremities: No edema appreciated. No tenderness, asymmetry. Pulses: radial present and equivalent bilaterally, dorsalis pedis present and equivalent bilaterally. Neuro: Cranial nerves grossly intact, strength is equal bilaterally upper and lower extremities, speech normal. Michelle present at time of initial exam, removed immediately after. Test 07/18/16 15:48 07/18/16 17:12 07/18/16 17:30 07/19/16 06:40 Hold Purple Top Tube Received (Received) Prothrombin Time 13.4sec (8.1-12.5) Prothromb Time International Ratio 1.25ratio Hold Blue Top Tube Received (Received) Lipase 15U/L (13-60) Hold Red Top Tube Received (Received) Hold [place] Top Tube Received (Received) Lactic Acid Level 1.1mmol/L (0.4-2.0) Hold Urine Received (Received) Troponin T 0.010ug/L (0.0-0.011) Test 07/20/16 09:34 07/23/16 04:55 07/24/16 05:00 Phosphorus Level 4.6mg/dL (2.5-4.9) Pro-B-Type Natriuretic Peptide 16055xv/mL (0-376) Magnesium Level 2.1mg/dL (1.6-2.6) White Blood Count 3.8th/mm3 (3.8-10.1) Red Blood Count 3.87mil/mm3 (4.40-5.80) Hemoglobin 10.7g/dL (13.8-17.2) Hematocrit 33.9% (41.0-50.0) Mean Corpuscular Volume 87.6fL (81-100) Mean Corpuscular Hemoglobin 27.6pg (27.0-35.0) Mean Corpuscular Hemoglobin Concent 31.6% (32.0-37.0) Red Cell Distribution Width 14.0% (12.3-15.4) Platelet Count 181bil/L (150-400) Neutrophils (%) (Auto) 57.8% (40-74) Lymphocytes (%) (Auto) 26.2% (14-46) Monocytes (%) (Auto) 10.7% (4-12) Eosinophils (%) (Auto) 4.2% (0-5) Basophils (%) (Auto) 0.8% (0-3) Sodium Level 141mEq/L (134-144) Potassium Level 4.0mEq/L (3.5-5.2) Chloride Level 100mEq/L (97-108) Carbon Dioxide Level 29mmol/L (18-29) Blood Urea Nitrogen 20mg/dL (8-27) Creatinine 1.12mg/dL (0.76-1.27) Estimat Glomerular Filtration Rate 68mL/min (>59) Glucose Level 98mg/dL (60-99) Calcium Level 8.8mg/dL (8.5-10.1) Total Bilirubin 0.4mg/dL (0.0-1.2) Aspartate Amino Transf (AST/SGOT) 9U/L (0-50) Alanine Aminotransferase (ALT/SGPT) 6U/L (0-44) Alkaline Phosphatase 82U/L (25-160) Total Protein 6.0g/dL (6.4-8.4) Albumin 3.0g/dL (3.4-5.0) Discharge Medications Discharge Medications Alfuzosin ER (Uroxatral) 10 Mg Tablet 10 MG PO HS (Reported) Amitriptyline (Amitriptyline) 50 Mg Tab 50 MG PO HS (Reported) Duloxetine (Cymbalta) 60 Mg Capsule.dr 60 MG PO HS (Reported) TAKE WITH 30 MG DULOXETINE (=90 MG TOTAL) Duloxetine (Duloxetine) 30 Mg Capsule.dr 30 MG PO HS (Reported) TAKE WITH 60 MG DULOXETINE (=90 MG TOTAL) Furosemide (Lasix) 20 Mg Tablet 20 MG PO DAILY Prescribed by: MIGUEL ZEE, Ipratropium/Albuterol Sulfate (Iprat-Albut 0.5-3(2.5) mg/3 mL Inhalant Soln) 3 Ml Ampul.neb 3 ML IH Q6H (Reported) Metoprolol Succinate ER (Metoprolol Succinate ER) 50 Mg Tab.er.24h 50 MG PO HS ( Reported) Multivit with Calcium,Iron,Min (Therapeutic M) 1 Each Tablet 1 EACH PO HS ( Reported) Olanzapine (Olanzapine) 10 Mg Tablet 10 MG PO HS (Reported) Oxycodone ER (Oxycontin) 20 Mg Tab.er.12h 20 MG PO BID (Reported) Rivaroxaban (Xarelto) 20 Mg Tablet 20 MG PO HS (Reported) Sennosides (Senna) 8.6 Mg Tablet 17.2 MG PO HS (Reported) Tamsulosin (Flomax) 0.4 Mg Capsule 0.8 MG PO HS (Reported) Trazodone (Trazodone) 50 Mg Tablet 150 MG PO HS (Reported) USE 3 TABLETS OF THE 50 MG TABLETS (PT CANNOT SWALLOW LARGER PILL) As needed Albuterol Neb Soln (Albuterol Neb Soln) 2.5 Mg/3 Ml Vial.neb 2.5 MG INHALATION Q4H PRN PRN For Shortness of Breath (Reported) Docusate Sodium (Diocto) 50 Mg/5 Ml Liquid 50 MG PO HS PRN PRN For Constipation (Reported) Oxycodone (Roxicodone) 5 Mg Tablet 5 MG PO TID PRN PRN For Pain (Reported) Additional med instructions Continue taking metoprolol succinate 50 mg daily. Stop taking lisinopril. Follow up with Dr. Parnell about the continued use of this medication. You are going home with a new medication called Lasix (furosemide). Take 20 mg daily. When you follow up with Dr. Parnell he will talk to you about continuing to take this. I sent the prescription electronically to your pharmacy in [place]. Continue taking all other medications not listed above as previously prescribed. Followup Plan Follow-up plan Please follow up with Dr. Parnell during the upcoming week. You should also plan to follow up with Dr. Ly during the next week or so. Discharge Diet: Heart Healthy Discharge Activity: Limited until seen by PCP Patient Instructions We took your Michelle catheter out and your were able to void quite well. Continue taking your usual medications for BPH so that you continue to void well. Follow up with your PCP to discuss continued management of your BPH. Follow-up Provider: Joe Parnell MD Follow-up with PCP in: 1 week Provider: Don Ly DO Follow-up in: 1 week Time spent Greater than 30 minutes was spent in preparation of discharge with greater than 50% of that time dedicated to patient counseling and coordination of care. . Attending Statement The patient was seen and examined together with Dr. Zee on 07/25/19 and I agree with the history, exam and plan as outlined in the note above. . copies to: Joe Parnell MD; Don Ly Jennifer E DO Jul 24, 2016 13:52 Alec Evangelista MD Jul 24, 2016 18:17
--- NOTE | 2016-07-24 13:53 | NUR ---
Social Work Note: Discharge Data& Assessment: EMR reviewed. Per pt is medically ready for discharge. SW met with pt and pt at bedside to confirm discharge plan and assess for any unmet needs. Alec Washburn is a 71 year old male admitted on 07/18/2016 for CHF. Per pt is medically improved and ready to discharge home with his via POV with follow up with Dr. Parnell in one week. Per MD in morning rounds, MD had brought up the potential of hospice with pt and pt , but it is not something they are pursuing at this time. Pt to follow up with his Marketing Development Specialist for further care plan and prognosis on an outpt basis. Pt and pt deny any other needs. Pt transporting pt home today. No other discharge needs identified. All updated and agreeable to plan. Plan: Per pt is medically improved and ready to discharge home with his via POV with follow up with Dr. Parnell in one week. Pt and pt deny any other needs. No other discharge needs identified. All updated and agreeable to plan. TOM Simon
--- NOTE | 2016-07-24 14:12 | NUR ---
Discharge The pt left the unit with a FWW at 1400. He is being transported home via private vehicle driven by his . The pt left the unit with all his belongings, A&Ox3, and all his vitals WNL for his baseline. His groin cath site was WNL. The pt left with his discharge packet of info, including new scripts, educational materials and follow up appointment info. The pt verbalized understanding of all presented information.
--- NOTE | 2016-07-24 17:33 | PFS ---
[address] [address] PULMONARY FUNCTION STUDY PATIENT: KURT GALLO : 1945 MR#: [id number] ADMIT: 07/18/2016 JOB ID: [id number] DATE: 07/22/2016 PROCEDURE: Elective cardioversion, inpatient procedure. INDICATION: Atrial fibrillation. Hypotension. CONSENT: The patient was explained the risks, benefits, and alternatives of the procedure. Informed signed consent was obtained. DESCRIPTION OF PROCEDURE: The patient was brought to the procedure room. RAMIRO was performed prior to the procedure to make sure there was no left atrial appendage thrombus. After ruling out the left atrial appendage thrombus, cardioversion was planned. Defibrillation pads were placed in both anterior and posterior chest bonilla. The sedation was performed by Dr. Clint Yang. Heart rate and blood pressure were monitored during the procedure. 200 joules of synchronised DC current was administered after making sure the patient was in deep conscious sedation. Postprocedure EKG showed normal sinus rhythm, first-degree AV block, PACs. IMPRESSION: Successful DC cardioversion. ERNIE
--- NOTE | 2016-07-24 18:44 | PROG NOTE ---
[address] [address] PROGRESS NOTE PATIENT: KURT GALLO : 1945 MR#: [id number] ADMIT: 07/18/2016 JOB ID: [id number] DATE: This is hospital day five, status post synchronized cardioversion, status post left heart catheterization. The patient was hospitalized for shortness of breath and heart failure. The patient is alert and oriented. He is lying in bed comfortably. He was able to walk around the entire floor today without getting short of breath according to the nurse. His blood pressure has seemed to stabilize. It has come up so that the last blood pressure taken at 7:43 this morning was 99/75, pulse is 79 respirations 18, pulse ox is 98 on 2 L of oxygen by nasal cannula. There is mild rales in the lungs. Auscultation of the heart reveals normal S1, S2, without murmurs, clicks, or rubs. Abdomen is soft and nontender. There is no discernible peripheral edema. LABORATORY: White blood count 3.8, hemoglobin 10.7, hematocrit 33.9, platelet count 181. Sodium 141, potassium 4.0, total chloride 100, carbon dioxide 29, BUN 20, creatinine 1.12. Calcium 8.8, AST 9, ALT 6, alk phos 82. ASSESSMENT/PLAN: 1. Atrial fibrillation. Patient was cardioverted last Monday. He is maintaining a sinus rhythm with a first-degree AV block, while on 400 mg of amiodarone p.o. twice daily. He continues to be on Xarelto for anticoagulation. 2. Heart failure with hypotension. His blood pressure seems to have stabilized. He has an EF of 20% by echo. From a cardiology standpoint he can be discharged. We recommend that he be placed on 20 mg of Lasix, 50 mg of metoprolol succinate. Because of his hypotension will leave him off the lisinopril for the time being and re-evaluate when he comes to the clinic for his 1st office visit after discharge.
[2016-09-23] MEDS ORDERED: AMIO400T PO (11:15)
[2016-09-23] MEDS ORDERED: Potassium (11:15)
[2016-10-19] MEDS ORDERED: POTA10TA12 PO (15:43)
== END 2016-07-24 14:03 | disposition home or self-care (01) | DRG 286 ==
LOC: EDBD 15:34 → SED 15:34 → MPC 18:25 → PCC 07-22 07:17
PROVIDERS: ADMIT Internal Medicine; ATTEND Internal Medicine
PROC: 4A023N7 Measurement of Cardiac Sampling and Pressure, Left Heart, Percutaneous Approach (ICD-10-PCS; principal; 2016-07-21)
PROC: B2111ZZ Fluoroscopy of Multiple Coronary Arteries using Low Osmolar Contrast (ICD-10-PCS; 2016-07-21)
PROC: B24BZZ4 Ultrasonography of Heart with Aorta, Transesophageal (ICD-10-PCS; 2016-07-22)
PROC: 5A2204Z Restoration of Cardiac Rhythm, Single (ICD-10-PCS; 2016-07-22)
DX: I50.23 Acute on chronic systolic (congestive) heart failure (principal); J96.20 Acute and chronic respiratory failure, unspecified whether with hypoxia or hypercapnia; J44.1 Chronic obstructive pulmonary disease with (acute) exacerbation; I25.10 Atherosclerotic heart disease of native coronary artery without angina pectoris; I10 Essential (primary) hypertension; I48.91 Unspecified atrial fibrillation; Z79.01 Long term (current) use of anticoagulants; N40.1 Benign prostatic hyperplasia with lower urinary tract symptoms; R33.8 Other retention of urine; N32.0 Bladder-neck obstruction; I34.0 Nonrheumatic mitral (valve) insufficiency; Z66 Do not resuscitate; I95.9 Hypotension, unspecified; F17.200 Nicotine dependence, unspecified, uncomplicated

== ENCOUNTER 2016-09-27 00:09 | Day surgery (SDC) | payer MEDICARE, OTHER ==
[~2016-09-27] VITALS: Ht 177.8 cm; Wt 83.0 kg
[~2016-09-27 00:09] MED LIST changes: +ALBU2.5V4 INHALATION; -AMIO200T PO; +AMIO400T PO; +AMT50T PO; -CAR8A PO; +DOCU50LI PO; -FINA5TAB9 PO; +FURO-129 PO; -FURO40TA4 PO; +IPRA3AMP IH; +MULT-140 PO; +OLAN10TA19 PO; -OLAN5TAB PO; +OXYC-474 PO; -OXYC10TA8 PO; +Potassium; +SENN-133 PO; +TAMS0.4C98 PO
[2016-09-27 06:00] VITALS: BP 123/96; PULSE 71; RESP 13; O2SAT 94
--- NOTE | 2016-09-27 06:00 | NUR ---
ADMISSION NOTE MALE PT ADMITTED FOR ABLATION AND BIV ICD IMPLANT. DISCUSSED PLAN OF CARE WITH PT AND . SEE ADMIT AND FLOW SHEET
[2016-09-27] MEDS ORDERED: 0.9% Sodium Chloride 1,000 ML IV PRN (06:06)
[2016-09-27] MEDS ORDERED: 0.9% Sodium Chloride 1,000 ML IV SCH (06:06)
[2016-09-27] MEDS ORDERED: Vancomycin Inj 1,000 MG in IV Premix 1 EACH IV ONE (06:10)
[2016-09-27 06:32] LABS: BASOPHILS % (AUTO) 0.6 % (0-3); EOSINOPHILS % (AUTO) 4.4 % (0-5); Mean Corpuscular Hemoglobin 27.2 pg (27.0-35.0); Mean Corpuscular Volume 83.9 fL (81-100); NEUTROPHILS % (AUTO) 62.9 % (40-74); Platelet Count 212 bil/L (150-400)
[2016-09-27 06:50] LABS: INR 1.57 ratio
[2016-09-27] MEDS ORDERED: METO50TA7 PO (07:00)
[2016-09-27] MEDS ORDERED: ALFU10TA11 PO (07:05)
--- NOTE | 2016-09-27 07:30 | NUR ---
16 [facility]RI[facility] 5CC ROSEN CATHETER PLACED PER ORDER
[2016-09-27] MEDS ORDERED: Heparin 10,000 Unit/1,000 mL NS Premix IV ONE ×2 (08:00→08:27)
[2016-09-27] MEDS ORDERED: Bupivacaine-MPF 0.5% 30 mL Inj ONE (08:00)
[2016-09-27] MEDS ORDERED: 0.9% Sodium Chloride 250 ML ONE (08:00)
[2016-09-27] MEDS ORDERED: Vancomycin 1,000 mg Inj ONE (08:18)
[2016-09-27] MEDS ORDERED: Water for Injection 50 ML IV ONE (08:18)
[2016-09-27] MEDS ORDERED: fentaNYL-PF 50 mCg/mL 2 mL Inj ONE (08:29)
[2016-09-27] MEDS ORDERED: Sodium Chloride LOK Flush 10 mL Syringe IVFLUSH SCH ×2 (08:30)
--- NOTE | 2016-09-27 09:10 | NUR ---
CASE CANCELLED DUE TO MEDICATION. IVS REMOVED INTACT. ROSEN REMOVED. OFFICE TO CALL AND RESCHEDULE. INSTRUCTIONS GIVEN HOME WITH DAUGHTER
[2016-10-19] MEDS ORDERED: POTA10TA12 PO (15:43)
== END 2016-09-27 23:59 | disposition home or self-care (01) ==
LOC: SOUO 00:09
PROVIDERS: ATTEND Internal Medicine Cardiovascular Disease
DX: I42.0 Dilated cardiomyopathy (principal); Z53.8 Procedure and treatment not carried out for other reasons; I48.1 Persistent atrial fibrillation; Z79.899 Other long term (current) drug therapy; G47.33 Obstructive sleep apnea (adult) (pediatric); I34.0 Nonrheumatic mitral (valve) insufficiency; I48.3 Typical atrial flutter; Z79.01 Long term (current) use of anticoagulants; Z98.890 Other specified postprocedural states; I50.9 Heart failure, unspecified
CPT/HCPCS: 33249; 36415; 80048; 85025; 85610; 93005; C1769; C1892; J1644; J3010; J3370; J7030; J7050

== ENCOUNTER 2016-10-20 00:08 | Day surgery (SDC) | payer MEDICARE, OTHER ==
[~2016-10-20] VITALS: Ht 177.8 cm; Wt 81.0 kg
[2016-10-20] VITALS (15 sets, daily range): BP systolic 100–150; BP diastolic 69–87; PULSE 52–73; RESP 11–23; O2SAT 90–95
[~2016-10-20 00:08] MED LIST changes: +ALFU10TA11 PO; -AMT50T PO; -METO-272 PO; +METO50TA7 PO; +POTA10TA12 PO; -Potassium
--- NOTE | 2016-10-20 08:00 | NUR ---
ADMISSION NOTE MALE PT ADMITTED FOR ABLATION AND ICD IMPLANT. DISCUSSED PLAN OF CARE WITH PT AND FAMILY. SEE ADMIT AND FLOW SHEET
[2016-10-20] MEDS ORDERED: 0.9% Sodium Chloride 1,000 ML IV ONE (08:20)
[2016-10-20] MEDS ORDERED: Vancomycin 1 Gm/200 mL NS Premix IV SCH (08:25)
[2016-10-20 08:54] LABS: BASOPHILS % (AUTO) 0.7 % (0-3); EOSINOPHILS % (AUTO) 3.5 % (0-5); MONOCYTES % (AUTO) 9.2 % (4-12); Mean Corpuscular Hemoglobin 27.5 pg (27.0-35.0); Mean Corpuscular Volume 84.8 fL (81-100); NEUTROPHILS % (AUTO) 70.5 % (40-74); Platelet Count 188 bil/L (150-400)
[2016-10-20 09:17] LABS: INR 1.02 ratio
[2016-10-20] MEDS ORDERED: FINA1TAB17 PO (09:27)
[2016-10-20] MEDS ORDERED: Bupivacaine-MPF 0.5% 30 mL Inj ONE (09:29)
[2016-10-20] MEDS ORDERED: MULT1CAP33 PO (09:29)
[2016-10-20] MEDS ORDERED: 0.9% Sodium Chloride 250 ML ONE (09:29)
[2016-10-20] MEDS ORDERED: Heparin 10,000 Unit/1,000 mL NS Premix IV ONE (09:29)
[2016-10-20] MEDS ORDERED: fentaNYL-PF 50 mCg/mL 2 mL Inj ONE ×3 (09:59→11:35)
[2016-10-20] MEDS ORDERED: Vancomycin 1,000 mg Inj ONE (10:14)
[2016-10-20] MEDS ORDERED: Water for Injection 50 ML IV ONE (10:15)
[2016-10-20] MEDS ORDERED: Ondansetron 2 mg/mL 2 mL Inj IVPUSH PRN (12:30)
--- NOTE | 2016-10-20 12:45 | NUR ---
POST PROCEDURE NOTE RETURNED FROM PUMP SERVICER HELPER. SEE FLOW SHEET
--- NOTE | 2016-10-20 13:07 | DRSVH ---
PROCEDURE: X-RAY CHEST ONE VIEW, PORTABLE ([id number]) INDICATIONS: For new leads placed TECHNIQUE: One view of the chest was acquired. COMPARISON: [facility], CR, XR CHEST 1VW (PORTABLE), 07/18/2016, 16:02. [facility], CR, XR CHEST 2VW, 07/21/2016, 12:15. FINDINGS: Surgical changes and devices: Left chest wall AICD has been placed. Cholecystectomy clips. Lungs and pleura: No pleural effusions or pneumothorax. Lungs are clear. Mediastinum: Mediastinal contours appear normal. Heart size is normal. Bones and chest wall: No suspicious bony lesions. Overlying soft tissues appear unremarkable. IMPRESSION: No acute cardiopulmonary disease process. Dictated by: Cindy Hills MD, PhD on 10/20/2016 at 13:04 Approved by: Cindy Hills MD, PhD on 10/20/2016 at 13:05
--- NOTE | 2016-10-20 15:50 | NUR ---
TRANSFER NOTE TRANSFERED TO [facility]. REPORT GIVEN
--- NOTE | 2016-10-20 15:57 | OP ---
[address] [address] OPERATIVE REPORT PATIENT: KURT GALLO : 1945 MR#: [id number] ADMIT: 10/20/2016 JOB ID: [id number] DATE OF SURGERY: 10/20/2016 PREOPERATIVE DIAGNOSIS(ES): 1. Severe dilated cardiomyopathy with ejection fraction 20%. 2. Atrial fibrillation, paroxysmal. 3. Incomplete left bundle branch block with QRS duration 130 msec. 4. [place] [employer] class 3 heart failure symptoms. POSTOPERATIVE DIAGNOSIS(ES): 1. Severe dilated cardiomyopathy with ejection fraction 20%. 2. Atrial fibrillation, paroxysmal. 3. Incomplete left bundle branch block with QRS duration 130 msec. 4. [place] [employer] class 3 heart failure symptoms. PROCEDURES PERFORMED: 1. Biventricular ICD implantation with placement of a multilead ICD generator, right ventricular ICD lead, coronary sinus left ventricular lead and right atrial pacemaker lead. 2. Coronary sinus venogram. 3. Fluoroscopy. SURGEON: Workforce Development Specialist: Arnel Byers MD APPLICATION DBA: Gertrudis Perdue. IMPLANTED DEVICE: 1. [employer] pulse generator, model ZM9061-90X, serial #[id number]. 2. RV ICD lead, single coil DF4, [employer] 7122E, 65 cm, serial #[id number]. 3. LV lead, [employer] 1458Q, 86 cm, serial #[id number]. 4. RA lead, [employer] 208PC, 52 cm, serial #[id number]. ANESTHESIA: Bolus dosing of Versed and fentanyl utilized for appropriate level of sedation. INDICATION: This patient is a pleasant, 71-year-old man with severe dilated cardiomyopathy. His ejection fraction has not improved despite the passage of time and prolonged medical management. After discussion of risks and benefits of biventricular ICD implantation for primary prevention of sudden cardiac arrest and cardiac resynchronization therapy, he opted to proceed. PROCEDURAL DESCRIPTION: After obtaining informed consent, the patient was taken to the EP laboratory in a fasting nonsedated state, where he was prepped in usual sterile fashion. The left infraclavicular region was infiltrated with 40 cc of a 50/50 mixture of bupivacaine and lidocaine. Once adequate anesthesia was achieved, a 3 cm transverse incision was performed 2 cm below the left clavicle. Dissection was carried down to the pectoralis fascia, and a pocket was then fashioned using combination of electrocautery and blunt dissection. Once adequate hemostasis had been achieved, access to the left axillary vein was gotten over the first rib three times with a micropuncture needle to deploy three 0.035, 3 mm J guide wires. over the first of these, a 7-Bel[place]ian tear-away sheath was advanced. Once this was removed, an active fixation ICD lead was then advanced through the RV outflow tract, all the way to the RV apex. The lead was affixed in position using its associated active fixation screw was connected to the external analyzer and demonstrated appropriately sensed R waves, impedance, capture was checked to 10 V and there was no evidence of diaphragmatic stimulation. Attention was now paid to placement of the left ventricular coronary sinus lead. Over the other previously deployed J guidewires, a 9-[place]ian tear-away sheath was advanced. Once this was removed, a [employer] coronary sinus delivery sheath was advanced over a Super curved EP decapolar catheter. The catheter was used to engage the coronary sinus after which the sheath was advanced in. Multiple coronary sinus venograms were performed in multiple projections both with and without occlusion balloon. There was only one posterolateral branch of the coronary sinus os around the 5 o'clock position. This was chosen as our position of choice. The sheath was flushed and a quadripolar CS lead was brought into the field and advanced into the branch of choice over a Whisper wire. The Whisper wire was pulled back. The lead was connected to external analyzer and demonstrated appropriately sensed R waves, impedance, capture threshold was checked to 10 V and there was no evidence of diaphragmatic stimulation. The Whisper wire was pulled back and in its stead was placed a finishing stylet. The short 9-Bel[place]ian sheath was slit loose. The long sheath was maintained for stability while we placed the right atrial lead. The right atrial lead was addressed next. over the last of the previously deployed J guidewires, a 6-[place]ian tear-away sheath was advanced. Once this was removed, an active fixation lead was advanced to the right atrial appendage, it was affixed in position using the associated active fixation screw. The lead was connected to the external analyzer and demonstrated appropriately sensed P waves, impedance, capture was checked to 10 V and there was no evidence of diaphragmatic stimulation. Finally, the long sheath was slit loose maintaining the position of the coronary sinus lead. Once the position and redundancy of all three leads had been confirmed in multiple fluoroscopic views, the leads were anchored to the prepectoral fascia using the associated anchoring sleeves and two Ethibond sutures. The pocket was then copiously irrigated with antibiotic solution and it was connected to a generator. The generator system pocket was affixed to the floor of the pocket using 1-0 Ti-Cron suture. The incision was closed with running layers of absorbable suture. The wound was dressed with skin adhesive and a small dressing. At the end of procedure, the needle, sponge, instrument counts were all correct. COMPLICATIONS: None. ESTIMATED BLOOD LOSS: 5-10 cc. DEVICE MEASURED DATA: 1. Right atrial lead 4.6 mV, 450 ohms, 1.25 V at 1 msec. 2. RV lead greater than 12 mV, 550 ohms, 0.75 V at 0.4 msec. 3. LV lead V1 to RV coil, 1125 ohms, 1.75 V at 1.5 msec. FINAL PROGRAM PARAMETERS: 1. DDDR 60-130 beats per minute. 2. VF zone at 187 beats per minute with ATP followed by shock. 3. VT monitor zone 150 beats per minute. IMPRESSION: Successful biventricular implantable cardioverter-defibrillator implantation. PLAN: 1. Stat portable chest x-ray. 2. PA and lateral chest x-ray in the morning. 3. Device interrogation. 4. IV vancomycin through tomorrow. 5. Doxycycline x7 days. 6. Wound check in one week. ATTESTATION: Arnel Byers MD, Electrophysiology attending, was present for and supervised/performed all aspects of this procedure.
[2016-10-20] MEDS: 0.9% Sodium Chloride 1,000 ML IV SCH ×2 (15:58→22:28)
--- NOTE | 2016-10-20 16:18 | NUR ---
Arrived to [facility] Patient report called by KIARRA FERNANDES. Patient arrived to [facility] room 3017 via bed. Patient placed on telemetry. Patient oriented to staff, room, television, call light, and visiting hours. Patient had dressing C/D/I on left chest and complaints of 3/10 pain to incision site and 4/10 back pain. Patient was administered 950mg Tylenol for pain. Admit completed. Addendum: 10/20/16 at 1622 by LYNETTE RESTREPO RN Patient had Michelle catheter in place. Michelle will be removed.
--- NOTE | 2016-10-20 18:02 | NUR ---
Michelle catheter removed Patient had Michelle catheter placed for ICD implant and arrived on [facility] with catheter still in place. Patient is able to get up out of bed and ambulate to bathroom. Michelle catheter removed per protocol. Patient has voided spontaneously. Will continue to monitor. Addendum: 10/20/16 at 1804 by LYNETTE RESTREPO RN Michelle catheter removed at 1700.
[2016-10-20] MEDS ORDERED: Albuterol 2.5 mg/3 mL Inhalation Solution NEB PRN (18:55)
[2016-10-20] MEDS ORDERED: Albuterol-Ipratropium 3 mL Inhalation Solution NEB PRN (19:00)
[2016-10-20] MEDS: oxyCODONE ER 10 mg ER12 Tablet PO SCH (20:43)
[2016-10-20] MEDS ORDERED: DULoxetine 30 mg DR Capsule PO SCH (21:00)
[2016-10-21] MEDS ORDERED: Vancomycin Inj 1,000 MG in IV Premix 1 EACH IV ONE (00:30)
[2016-10-21 00:40] VITALS: BP 116/70; PULSE 65; RESP 18; O2SAT 91
[2016-10-21 04:43] VITALS: BP 120/82; PULSE 66; RESP 18; O2SAT 94
[2016-10-21 05:09] VITALS: PULSE 61
[2016-10-21] MEDS: 0.9% Sodium Chloride 1,000 ML IV SCH (07:32)
[2016-10-21] MEDS: oxyCODONE ER 10 mg ER12 Tablet PO SCH (07:49)
[2016-10-21 07:52] VITALS: PULSE 81; RESP 20; O2SAT 92
[2016-10-21 08:00] VITALS: PULSE 60
[2016-10-21 08:10] LABS: APPEARANCE,URINE HAZY (CLEAR,HAZY); COLOR,URINE YELLOW (YELLOW); OCCULT BLOOD,URINE NEGATIVE (NEGATIVE); UROBILINOGEN,URINE NORMAL (NORMAL)
[2016-10-21] MEDS ORDERED: Multivit-Miner-Folic Acid-Iron Tablet PO SCH (08:30)
[2016-10-21 08:49] VITALS: BP 125/85; PULSE 60; RESP 18; O2SAT 94
--- NOTE | 2016-10-21 09:30 | PCM.DIMED ---
Discharge Instructions Date of Service Oct 21, 2016 Dates of Hospitalization Discharge Diagnosis Discharge Diagnosis Nonischemic Dilated Cardiomyopathy Paroxysmal Atrial flutter Paroxysmal Atrial Fib Obstructive Sleep Apnea COPD Diet Discharge Diet: Low fat, Low Sodium, Heart Healthy Activity Discharge Activity: Other (Do not extend left elbow high above shoulder for one month. Do not lift, push or pull more than 10 lbs with the left arm for one month.) Call your provider Call your provider for: Fever or Chills, Bleeding, Excessive diarrhea Patient Instructions Follow-up in: 1 week Mid-level Provider (F9): Wei Haley PA-C Follow-up with Mid-level in: 6 weeks Wei Haley PA-C Oct 21, 2016 09:30
[2016-10-21] MEDS ORDERED: CEPH500C PO (09:42)
--- NOTE | 2016-10-21 10:15 | NUR ---
Discharge Patient given discharge orders. Patient given packet that was sent over with patient for IVCD placement. Patient given informational packet. Patient given medication list with written instructions when next dose is due. Patient IV's removed fully intact and asymptomatic. Patient assisted with placing on sling to left arm. Patient reminded to leave with all personal belongings. Patient awaiting transportation for discharge.
--- NOTE | 2016-10-21 13:35 | DRSVH ---
PROCEDURE: X-RAY CHEST, TWO VIEWS ([id number]) INDICATIONS: For new lead placement TECHNIQUE: 2 views of the chest were acquired. COMPARISON: 07/21/2016 FINDINGS: Surgical changes and devices: AICD; surgical plate left humerus. Lungs and pleura: No pleural effusions or pneumothorax. Minimal stranding density in the left midlun g field and left base laterally, unchanged, compatible with scarring or atelectasis. Mediastinum: Mediastinal contours are normal. Heart size is normal. Tortuous aorta. Bones and chest wall: No suspicious bony abnormalities. Soft tissues appear unremarkable. IMPRESSION: 1. Interval placement of permanent pacemaker/defibrillator. 2. Mild scarring or atelectasis left mid and lower lung field unchanged. Dictated by: Dom Brothers M.D. on 10/21/2016 at 13:31 Approved by: Dom Brothers M.D. on 10/21/2016 at 13:33
--- NOTE | 2016-10-21 14:07 | DIS ---
[address] [address] DISCHARGE SUMMARY PATIENT: KURT GALLO : 1945 MR#: [id number] ADMIT: 10/20/2016 JOB ID: [id number] DIS: 10/21/2016 REASON FOR ADMISSION: Biventricular ICD implant. CHIEF COMPLAINT: Exertional dyspnea and fatigue with mild exertion. BRIEF HISTORY: The patient is a pleasant 71-year-old man with a severe dilated cardiomyopathy with an LV ejection fraction of 20%. He has had an intraventricular conduction delay and a QRS duration of 128 msec, and a history of atrial flutter and atrial fibrillation as well. He has been treated medically both for the low heart function and for the arrhythmias but still has low heart function. He was advised of the benefits of biventricular pacing defibrillator to both improve his heart function and to prevent sudden cardiac arrest, and he wished to receive one. COURSE IN HOSPITAL: The patient was admitted through the [facility] and taken to the catheterization laboratory, where he received the three-lead pacing defibrillator system without incident. He was then taken back to the [facility] for recovery from sedation and then transferred up to the third floor [facility] for overnight telemetry and observation. He did well and in the morning was ambulatory without difficulty. The ICD site was closed and dry. There was no hematoma or ecchymosis visible. Chest x-ray showed good lead positions and no pneumothorax. Device evaluation showed satisfactory capture and sensing thresholds for all three leads. DISPOSITION: The patient was discharged home in good condition with a followup appointment at the [facility] Cardiology office in one week. He was asked not to extend his left elbow high above his left shoulder for one month, and not to lift, push, or pull more than 10 pounds with the left arm for one month. He will follow his heart healthy diet and take medications as prescribed. DISCHARGE MEDICATIONS: 1. Cephalexin 500 mg b.i.d. for 1 week. 2. Albuterol nebulizer q.4 h. p.r.n. dyspnea. 3. Amiodarone 400 mg daily. 4. Docusate sodium 100 mg p.r.n. constipation. 5. Duloxetine 60 mg q.h.s. 6. Duloxetine 30 mg q.h.s. 7. Finasteride 0.5 mg daily. 8. Furosemide 20 mg daily. 9. Ipratropium/albuterol sulfate nebulizer q.6 h. 10. Multivitamin 1 daily. 11. Olanzapine 10 mg q.h.s. 12. Oxycodone 5 mg tablet, 10 mg b.i.d. 13. Oxycodone ER 20 mg t.i.d. 14. Potassium chloride ER 10 mEq daily. 15. Xarelto 20 mg q.h.s. 16. Senna 17.2 mg q.h.s. 17. Flomax, which is tamsulosin, 0.4 mg q.h.s. 18. Trazodone 150 mg q.h.s. FINAL DIAGNOSES: 1. Nonischemic dilated cardiomyopathy. 2. Paroxysmal atrial flutter. 3. Paroxysmal atrial fibrillation. 4. Obstructive sleep apnea.
== END 2016-10-21 11:23 | disposition home or self-care (01) ==
LOC: SOUO 00:08 → MPC 15:46 → SOUO 10-21 11:23
PROVIDERS: ATTEND Internal Medicine Cardiovascular Disease
DX: I42.0 Dilated cardiomyopathy (principal); Z00.6 Encounter for examination for normal comparison and control in clinical research program; I44.7 Left bundle-branch block, unspecified; I48.0 Paroxysmal atrial fibrillation; I48.92 Unspecified atrial flutter; G47.33 Obstructive sleep apnea (adult) (pediatric); I50.9 Heart failure, unspecified; J44.9 Chronic obstructive pulmonary disease, unspecified; I34.0 Nonrheumatic mitral (valve) insufficiency; Z79.01 Long term (current) use of anticoagulants; Z79.899 Other long term (current) drug therapy; Z98.890 Other specified postprocedural states
CPT/HCPCS: 33225; 33249; 36415; 71010; 71020; 80048; 81001; 85025; 85610; 93005; 94664; 94799; 99152; 99153; C1725; C1769; C1777; C1882; C1892; C1898; C1900; J0131; J1644; J2250; J3010; J3370; J7030; J7050; Q9967